=== PATIENT | male | born 1955 | race Caucasian/White ===

== ENCOUNTER 2017-12-18 19:49 | Inpatient (IN) ==
[2017-12-18] MEDS ORDERED: ZOFRAN 4 MG/2 ML IVP STA ×2 (19:57→23:06)
[2017-12-18 20:06] VITALS: BMI 26.5
--- NOTE | 2017-12-18 20:13 | ED.PDOC ---
General ED Provider: Dr. GREGORIA WOOD Chief Complaint: Nausea/Vomiting Stated Complaint: Patient is a 62 year old who comes to the ER with Progresive shortness of breath for the past 2 days. He states he has had vomiting 2-3 x today. Denies any chest pain. States that when he starts vomiting it does not improve for a while. Time Seen by Physician: 20:06 Mode of Arrival: Walk-In Information Source: Patient Exam Limitations: No limitations Nursing and Triage Documentation Reviewed and Agree: Yes Reviewed sepsis parameters & appropriate labs ordered?: No System Inflammatory Response Syndrome: Not Applicable Sepsis Protocol: For patient's 13 years and over: Temp is 96.8 and below OR 101 and greater Pulse >90 BPM Resp >20/minute Acutely Altered Mental Status Are patient's symptoms suggestive of a new infection, such as: -Pneumonia -Skin, Soft Tissue -Endocarditis -UTI -Bone, Joint Infection -Implantable Device -Acute Abdominal Infection -Wound Infection -Meningitis -Blood Stream Catheter Infection -Unknown System Inflammatory Response Syndrome: Not Applicable GI Complaint Exam - Vomiting/Diarrhea Complaint/Exam Onset/Duration: 1 day Symptoms Are: Still present Episodes of Vomiting over last 24 Hours: 3 Initial Severity: Moderate Character of Vomiting: Reports: Non-bilious Character of Diarrhea: Reports: Watery Aggravating: Reports: None (except when he has increased Phlegm ) Associated Signs and Symptoms: Denies: Dizziness, Light-headedness, Melena, Hematemesis, Fever, Abdominal pain, Cramping Non-GI Risk Factors: Reports: None Surgical Obstruction Risk Factors: Reports: None Related Surgical History: Reports: None Abdominal Findings: Present: None Differential Diagnoses: PUD, Viral Gastroenteritis Review of Systems - Review Of Systems Constitutional: Reports: Weakness Eyes: Reports: No symptoms Ears, Nose, Mouth, Throat: Reports: No symptoms Respiratory: Reports: Short of air Cardiac: Reports: No symptoms GI: Reports: Nausea, Vomiting : Reports: No symptoms Musculoskeletal: Reports: No symptoms Skin: Reports: No symptoms Neurological: Reports: Anxiety All Other Systems: Reviewed and Negative Past Medical History - Past Medical History Endocrine: Reports: None Cardiovascular: Reports: CHF Respiratory: Reports: None Hematological: Reports: None Gastrointestinal: Reports: GERD, Other (hepatitis C ) Genitourinary: Reports: None Neuro/Psych: Reports: None Musculoskeletal: Reports: None Cancer: Reports: None - Surgical History General Surgical History: Reports: Unknown - Family History Family History: Reports: Unknown - Social History Smoking Status: Former smoker Hx Substance Use: Yes (A LONG TIME AGO) Alcohol Screening: Occasionally - Immunizations Tetanus Shot up to Date: Yes Physical Exam - Physical Exam Appearance: Ill-appearing Ill-appearing: Severe Pain Distress: Mild Neck: Supple Respiratory: Airway patent, Breath sounds equal, Crackles (at right base ) Cardiovascular: Pulses normal, No rub, No murmur, Tachycardia GI/: Soft Musculoskeletal: Normal strength, ROM intact, No edema, No calf tenderness Skin: Warm, Dry, Normal color Neurological: Sensation intact, Motor intact, Alert, Oriented Psychiatric: Anxious Interpretation - EKG Interpretation Time of EKG #1: 20:16 Rate: Tachy Rhythm: Sinus Ectopy: None [place]: NL ST Segment: Normal Interpretation: Nonspecific T wave abnormality Re-Evaluation - Re-Evaluation Time of Re-Evaluation: 23:56 Status: Improved Vital Signs Stable: Yes (139/92) Lungs: Other (basilar rales.) Physician Notification - Case Discussed Physician Notified: Dr Peralta Time of Notification: 23:50 (Ok to Admit ) Critical Care Note - Critical Care Note Total Time (mins): 35 Course - Course Hematology/Chemistry: 12/20/17 05:00 12/20/17 05:00 Orders, Labs, Meds: Lab Review 12/18/17 12/18/17 12/18/17 20:15 20:15 20:15 WBC 9.52 RBC 4.69 L Hgb 13.5 L Hct 40.6 L MCV 86.6 MCH 28.8 MCHC 33.3 RDW Coeff of Mora 13.5 Plt Count 332 Immature Gran % (Auto) 0.2 Neut % (Auto) 67.2 Lymph % (Auto) 22.3 [place] % (Auto) 6.7 Eos % (Auto) 2.8 Baso % (Auto) 0.8 Immature Gran # (Auto) 0.0 Neut # (Auto) 6.4 Lymph # (Auto) 2.1 [place] # (Auto) 0.6 Eos # (Auto) 0.3 Baso # (Auto) 0.1 D-Dimer (Manual) Puncture Site O2 Saturation ABG pH ABG pCO2 ABG pO2 ABG HCO3 ABG Total CO2 ABG Base Excess Tone Test FiO2 % Sodium 140 Potassium 4.0 Chloride 104 Carbon Dioxide 21 L Anion Gap 19.0 BUN 17 Creatinine 1.04 Estimated GFR (MDRD) 73.00 BUN/Creatinine Ratio 16.34 Glucose 118 H Lactic Acid Calcium 10.1 Magnesium Total Bilirubin 0.8 AST 35 ALT 48 Alkaline Phosphatase 175 H Total Creatine Kinase 92 Troponin I 0.0330 B-Natriuretic Peptide 3429 H Total Protein 8.0 Albumin 3.8 Globulin 4.2 Albumin/Globulin Ratio 0.90 Amylase 40 Lipase 35 Procalcitonin 12/18/17 12/18/17 12/18/17 20:15 20:15 20:15 WBC RBC Hgb Hct MCV MCH MCHC RDW Coeff of Mora Plt Count Immature Gran % (Auto) Neut % (Auto) Lymph % (Auto) [place] % (Auto) Eos % (Auto) Baso % (Auto) Immature Gran # (Auto) Neut # (Auto) Lymph # (Auto) [place] # (Auto) Eos # (Auto) Baso # (Auto) D-Dimer (Manual) 1745.61 Puncture Site O2 Saturation ABG pH ABG pCO2 ABG pO2 ABG HCO3 ABG Total CO2 ABG Base Excess Tone Test FiO2 % Sodium Potassium Chloride Carbon Dioxide Anion Gap BUN Creatinine Estimated GFR (MDRD) BUN/Creatinine Ratio Glucose Lactic Acid 19.4 Calcium Magnesium Total Bilirubin AST ALT Alkaline Phosphatase Total Creatine Kinase Troponin I B-Natriuretic Peptide Total Protein Albumin Globulin Albumin/Globulin Ratio Amylase Lipase Procalcitonin < 0.05 12/18/17 12/18/17 20:15 20:21 WBC RBC Hgb Hct MCV MCH MCHC RDW Coeff of Mora Plt Count Immature Gran % (Auto) Neut % (Auto) Lymph % (Auto) [place] % (Auto) Eos % (Auto) Baso % (Auto) Immature Gran # (Auto) Neut # (Auto) Lymph # (Auto) [place] # (Auto) Eos # (Auto) Baso # (Auto) D-Dimer (Manual) Puncture Site Lb O2 Saturation 96.0 ABG pH 7.461 H ABG pCO2 28.4 L ABG pO2 75.0 L ABG HCO3 20.2 L ABG Total CO2 21 L ABG Base Excess -4 L Tone Test + FiO2 % 21.0 Sodium Potassium Chloride Carbon Dioxide Anion Gap BUN Creatinine Estimated GFR (MDRD) BUN/Creatinine Ratio Glucose Lactic Acid Calcium Magnesium 1.9 Total Bilirubin AST ALT Alkaline Phosphatase Total Creatine Kinase Troponin I B-Natriuretic Peptide Total Protein Albumin Globulin Albumin/Globulin Ratio Amylase Lipase Procalcitonin Orders Category Date Time Status ABG DRAW REQUEST Stat CARDIO 12/18/17 20:21 Completed EKG-(ED ONLY) Stat CARDIO 12/18/17 19:57 Completed NPO REMINDER: IMAGING ONCE CARE 12/18/17 22:21 Active ED APPLY O2 .ONCE EMERGENCY 12/18/17 19:57 Active ED [employer]PERVISOR APPLIED .ONCE EMERGENCY 12/18/17 19:57 Active ED IV/MEDIPORT/POWERPORT .ONCE EMERGENCY 12/18/17 19:57 Active ABG Stat LAB 12/18/17 20:21 Completed AMYLASE Stat LAB 12/18/17 20:15 Completed B-TYPE NATRIURETIC PEPTIDE Stat LAB 12/18/17 20:15 Completed BLOOD CULTURE (ED ONLY) Stat LAB 12/18/17 20:15 Completed CBC W/ AUTO DIFF Stat LAB 12/18/17 20:15 Completed COMPREHENSIVE METABOLIC PANEL Stat LAB 12/18/17 20:15 Completed CREATINE KINASE Stat LAB 12/18/17 20:15 Completed D-DIMER Stat LAB 12/18/17 20:15 Completed LACTIC ACID Stat LAB 12/18/17 20:15 Completed LIPASE Stat LAB 12/18/17 20:15 Completed MAGNESIUM Stat LAB 12/18/17 20:15 Completed PROCALCITONIN Stat LAB 12/18/17 20:15 Completed TROPONIN I Stat LAB 12/18/17 20:15 Completed 0.9 % Sodium Chloride [Saline Flush] MEDS 12/18/17 19:57 Discontinued 1 syr IVF PRN PRN Ondansetron HCl/Pf [Zofran 4 mg/2 ml] MEDS 12/18/17 19:57 Discontinued 4 mg IVP ONCE STA Ondansetron HCl/Pf [Zofran 4 mg/2 ml] MEDS 12/18/17 23:06 Discontinued 4 mg IVP ONCE STA CHEST, 1V AP ONLY Stat RADS 12/18/17 19:[address] CHEST PE PROTOCOL Stat RADS 12/18/17 22:19 Completed Medications Discontinued Medications Generic Name Dose Route Start Last Admin Trade Name Freq PRN Reason Stop Dose Admin Acetaminophen 650 mg 12/19/17 00:05 Tylenol PO Q4H PRN Fever > 102 Al Hydroxide/Mg Hydroxide 30 ml 12/19/17 01:29 12/19/17 01:30 Gi Cocktail PO 12/19/17 01:30 Not Given ONCE STA Albuterol/Ipratropium 1 vial 12/19/17 00:05 Duoneb NEB RTQID PRN wheezing Aspirin 81 mg 12/19/17 08:00 12/20/17 08:52 Aspirin Chewable PO Not Given DAILYWM BRANDYN Aspirin 81 mg 12/21/17 08:00 Aspirin Ec PO DAILYWM BRANDYN Atorvastatin Calcium 20 mg 12/20/17 21:00 Lipitor PO BEDTIME BRANDYN Cimetidine 400 mg 12/19/17 00:36 12/19/17 00:52 Tagamet PO 12/19/17 00:37 400 mg ONCE STA Administration Cimetidine 400 mg 12/19/17 06:30 12/20/17 05:35 Tagamet PO 400 mg QDAC BRANDYN Administration Enoxaparin Sodium 40 mg 12/19/17 09:00 12/20/17 08:56 Lovenox SUBCUT 40 mg DAILY BRANDYN Administration Furosemide 20 mg 12/19/17 00:30 12/20/17 05:35 Lasix IVP 20 mg QDAC BRANDYN Administration Losartan Potassium 25 mg 12/20/17 09:00 12/20/17 08:55 Cozaar PO 25 mg DAILY BRANDYN Administration Morphine Sulfate 2 mg 12/19/17 00:05 Morphine 2 Mg/Ml Syringe IVP Q4H PRN Severe Pain Multivitamins 1 tab 12/19/17 09:00 12/20/17 08:55 Multivitamin Tablet PO 1 tab DAILY BRANDYN Administration Ondansetron HCl 4 mg 12/18/17 19:57 12/18/17 20:32 Zofran 4 Mg/2 Ml IVP 12/18/17 19:58 4 mg ONCE STA Administration Ondansetron HCl 4 mg 12/18/17 23:06 12/18/17 23:16 Zofran 4 Mg/2 Ml IVP 12/18/17 23:07 4 mg ONCE STA Administration Ondansetron HCl 4 mg 12/19/17 00:05 Zofran 4 Mg/2 Ml IVP Q6H PRN Nausea / Vomiting Pantoprazole Sodium 40 mg 12/19/17 00:30 12/20/17 08:58 Protonix Iv IVP 40 mg DAILY BRANDYN Administration Potassium Chloride 20 meq 12/20/17 08:00 12/20/17 08:55 K-Dur PO 20 meq DAILYWM BRANDYN Administration Sodium Chloride 1 syr 12/18/17 19:57 12/18/17 23:18 Saline Flush IVF 1 syr PRN PRN Administration To flush IV Sodium Chloride 1 syr 12/19/17 05:00 12/20/17 13:26 Saline Flush IVF 1 syr Q8HR BRANDYN Administration Vital Signs: Temp Pulse Resp BP Pulse Ox 12/18/17 19:51 97.5 F L 102 H 28 H 144/105 H 97 Departure - Departure Time of Disposition: 23:57 Disposition: ADMITTED INPATIENT Discharge Problem: Nausea, Vomiting Congestive heart failure Qualifiers: Heart failure type: systolic Heart failure chronicity: acute on chronic Qualified Code(s): I50.23 - Acute on chronic systolic (congestive) heart failure Condition: Stable Pt referred to PMD for follow-up: No (ADMITTED ) IPMP verified?: No Allergies/Adverse Reactions: Allergies No Known Allergies Allergy (Verified 12/18/17 20:00) Home Medications: Ambulatory Orders Multivitamin [Multi-Vitamin Daily] 1 each PO DAILY 08/21/15 Cetirizine HCl [Zyrtec] 10 mg PO DAILY 12/19/17 Acetaminophen [Tylenol] 650 mg PO Q4H PRN tablet 12/20/17 Aspirin [Aspirin EC] 81 mg PO DAILYWM tablet. 12/20/17 Atorvastatin Calcium [Lipitor] 20 mg PO BEDTIME tablet 12/20/17 Cimetidine [Tagamet] 400 mg PO QDAC tablet 12/20/17 Enoxaparin Sodium [Lovenox] 40 mg SUBCUT DAILY syr 12/20/17 Furosemide [Lasix] 20 mg IVP QDAC vial 12/20/17 Losartan Potassium [Cozaar] 25 mg PO DAILY tablet 12/20/17 Morphine Sulfate [Morphine 2 mg/ml Syringe] 2 mg IVP Q4H PRN ml 12/20/17 Multivitamin [Multivitamin Tablet] 1 tab PO DAILY tab 12/20/17 Ondansetron HCl/Pf [Zofran 4 mg/2 ml] 4 mg IVP Q6H PRN 7 Days ml 12/20/17 Pantoprazole Sodium [Protonix IV] 40 mg IVP DAILY vial 12/20/17 Potassium Chloride [K-Dur] 20 meq PO DAILYWM tab 12/20/17
--- NOTE | 2017-12-18 21:45 | DI ---
EXAM: Single view chest. HISTORY: Shortness of breath. COMPARISON: CT dated 07/06/2015 I FINDINGS: A single portable AP view of the chest. LUNGS: The lung volumes are normal. There is blunting the costophrenic angles bilaterally. Bibasila r interstitial and airspace opacities are seen. There are no suspicious nodules. MEDIASTINUM: The heart is enlarged. The aorta is tortuous and calcified. OSSEOUS STRUCTURES: The osseous structures show mild degenerative changes consistent with age. The so ft tissues are unremarkable. IMPRESSION: 1. Bilateral pleural effusions. 2. Bibasilar interstitial and airspace opacities which are likely due to atelectasis. Pneumonia can not be excluded. Recommend follow-up.
--- NOTE | 2017-12-18 23:16 | CT ---
Exam: CT angiography of the chest History: Shortness of breath Technique: [address] of the chest utilizing CT angiography protocol. Multiplanar and max imum intensity projection reformations were performed. FINDINGS: Technically adequate for evaluation of pulmonary arteries. The aorta is not opacified. T here are no pulmonary artery filling defects. Moderate right and small left pleural effusions are pr esent with adjacent atelectasis. The upper lungs are clear. Atherosclerotic calcification of the ao rta without aneurysm. No acute chest wall abnormalities. No acute findings of the upper abdomen. Impression: 1. No evidence of pulmonary artery thrombus 2. Bilateral pleural effusions are nonspecific
[2017-12-19] MEDS ORDERED: MORPHINE 2 MG/ML SYRINGE IVP PRN (00:05)
[2017-12-19] MEDS ORDERED: DUONEB NEB PRN (00:05)
[2017-12-19] MEDS ORDERED: ZOFRAN 4 MG/2 ML IVP PRN (00:05)
[2017-12-19] MEDS ORDERED: TYLENOL PO PRN (00:05)
[2017-12-19] MEDS ORDERED: SODIUM CHLORIDE 1,000 ML IV SCH (00:30)
[2017-12-19] MEDS ORDERED: TAGAMET PO STA (00:36)
[2017-12-19] MEDS: PROTONIX IV IVP SCH ×2 (00:52→08:58)
[2017-12-19] MEDS: LASIX IVP SCH ×2 (00:52→05:38)
[2017-12-19] MEDS ORDERED: GI COCKTAIL PO ONE (01:27)
[2017-12-19] MEDS ORDERED: GI COCKTAIL PO STA (01:29)
--- NOTE | 2017-12-19 01:46 | PCM ---
- Chief Complaint Chief Complaint: Shortness of breath, Nausea and Vomiting. - History of Present Illness History of Present Illness: 62 yr old WM present in room 104 with Phuong Rodriguez, his mother. I was called by ER around midnight and came to evaluate patient status. Patient was last admitted to [facility] on 07/06/[address] Chicas and D/C by Dr. Chicas to 07/08/15 with transfer to . He had heart cath per his report at that time, was seen by cardiology, started on meds for his CHF. He took the Rx for about 1 year and then stopped them. He has not seen outpatient provider in 3-4 years. >50 year pack history of tobacco, quit 8 months ago. Chronic Nausea/vomiting corrected with tagamet. He denied ETOH use, denied recent drug use. Reported Hep C but no w/u, no treatment, unknown status. HE lives alone, mother present in room today. He works in construction, regular drug use, remote IV drug use, THC regularly but denies any drug use in past 2-3 months. When asked about drugs, he said he has used most of them but not heroin. His favorite is speed, he last used this 2-3 months ago, THC probably more recently. Reviewed Cyclic vomiting syndrome with him and need to avoid drugs. Praise given on smoking cessation status. He notes he should have come in here sooner. Mother noted that he had been declining since 09/2017. He has not gained any weight, but has chronic N/V and epigastric pain. Regular emesis, regurgitation and this is a daily thing for him. He denied bloody emesis. Weight from 2015 admission was 149 and he is currently up to 177. He denied any recent change. He has been eating out frequently, consuming large amounts of salt. Last Meal this am oatmeal and last night chicken noodle soup. He wretched x 6 during our encounter and notes that the only thing that works for him is tagamet. We have this ordered for him. I will also give him a GI coctail to see if this helps. Denies chest pain, but feels very nauseated. EKG evaluated by me and by DR. Pinon and no acute ST/T changes, normal axis, sinus tachy, prominent e/o LAE ( SEEN ON ECHO 2014 discussed below). He has not slept well in past 3 days, feels he must gasp for air. Nausea worse, SOA worse, wants rest. Speed/THC use as noted, none recently. History Review: Reviewed his admission from 2014. Similar symptoms with SOA worsening over 1-2 week period, started w/ exertion and then worsened to with sitting and all activities. Chest heaviness and pain, non radiating. Activity worsened sx. Visited ER, saw Dr gore BNP 2822, TI negative, Anemia present 12.7, BUN 21, Cr 1.21, Glu 140. Admitted for decompensation HF. HIstory GERD, PUD, OA, Hep C , unknown. Fam hx CAD. No cancers. 2+ edema on exam no clubbing. Respiratory distress w/ pleural effusion, nicotine use, polysubstance abuse. Dr. Kent was consulted, lovenox for DVT, BB metoprolol added. Enzymes. Pt transferred on . Bilateral pleural effusion, acute systolic heart failure, chest pain. Dr. Durham transfer. SOA longterm, worsening. CHest pain and tightness at that visit. Echo severe dilated cardiomyopathy and EJ 25%. Aneurysm 4.[address] Kent consult note, Dilated cardiomyopathy, normal lipid panel, chronic lung disease, prolonged smoking history. History of drug abuse, recommended lasix, Basil-I and BB. Reviewed last known echo from 07/07/15 as well. Enlarged lEft atrial left ventricle and right ventricle. Hypokinetic left ventrical. LVH EF ~25%, paradoxical septal wall mild base setpum. Dilated cardiomyopathy w/ left ventricular EJ 25%. Imaging Studies: Reviewed CT REport from 2015 and this showed ?Aneurysm of aorta> CT today did not show this. No e/o PE despite elevated Ddimer. Bilateral pleural effusions non specific and seem to be the same right sided moderate pleural effusions seen in 2015. NO aneursym is seen now. - Review of Systems Constitutional: weakness, fatigue, loss of appetite. No: fever, chills, sweats Eyes: No: blurred vision, double-vision, discharge, itching, pain, redness, photophobia Ears: hearing loss (mild chronic). No: pain, bleeding, drainage, ringing Nose: No: bleeding, congestion, discharge Throat: No: pain, swelling, voice change Mouth: No: bleeding, pain, swelling Respiratory: cough, shortness of air. No: wheeze, hemoptysis, pain with breathing Cardiovascular: edema. No: chest pain, left arm pain, diaphoresis, PND, orthopnea, palpitations, syncope Gastrointestinal: abdominal pain (epigastric), nausea, vomiting, other ( Occasional BRB on toilet paper per his report to me today. ?HEmorrhoidal problem. ). No: diarrhea, melena, hematemesis, hematochezia, dysphagia, constipation Genitourinary: No: dysuria, hematuria, frequency, incontinence, flank pain, penile discharge, testicular pain, testicular swelling, other Neurological: headache, dizziness, weakness, other (sleep issues. ) Musculoskeletal: No: pain, swelling in joints, other Skin: No: rash, pruritus, lacerations, wounds, bruising, other Immunology: No: hives, itching, frequent infections, difficulty healing, other Hematology: No: easy bruising, easy bleeding, swollen glands, other Endocrine: No: weight changes (SPECIFICALLY DENIED THIS PROBLEM> ) Psychiatric: No: depression, anxiety, sleeplessness, hopelessness, suicidal, hallucinations, other Habits: tobacco use (FORMER), substance use (MULTIPLE SUBSTANES WITHIN PAST 3 months but reports nothing in 2-3 likely. ). No: alcohol use - Past Medical History Past Medical History: Systolic CHF EF 25%, Dilated Cardiomyopathy, History IV drug use, Polysubstance abuse, Hep C chronicity unknown, Anemia, poor diet, non compliance, poor f/u. - Past Surgical History Past Surgical History: Tonsils/adenoids. Sutures of left arm as youth. - Allergies Allergies/Adverse Reactions: Allergies Allergy/AdvReac Type Severity Reaction Status Date / Time No Known Allergies Allergy Verified 12/18/17 20:00 - Medications Medications: Medications Generic Name Dose Route Start Last Admin Trade Name Freq PRN Reason Stop Dose Admin Acetaminophen 650 mg 12/19/17 00:05 Tylenol PO Q4H PRN Fever > 102 Al Hydroxide/Mg Hydroxide 30 ml 12/19/17 01:29 12/19/17 01:30 Gi Cocktail PO 12/19/17 01:30 Not Given ONCE STA Albuterol/Ipratropium 1 vial 12/19/17 00:05 Duoneb NEB RTQID PRN wheezing Aspirin 81 mg 12/19/17 08:00 Aspirin Chewable PO DAILYWM BRANDYN Cimetidine 400 mg 12/19/17 06:30 Tagamet PO QDAC BRANDYN Furosemide 20 mg 12/19/17 00:30 12/19/17 00:52 Lasix IVP 20 mg QDAC BRANDYN Administration Morphine Sulfate 2 mg 12/19/17 00:05 Morphine 2 Mg/Ml Syringe IVP Q4H PRN Severe Pain Multivitamins tab 12/19/17 09:00 Multivitamin Tablet PO DAILY BRANDYN Ondansetron HCl 4 mg 12/19/17 00:05 Zofran 4 Mg/2 Ml IVP Q6H PRN Nausea / Vomiting Pantoprazole Sodium 40 mg 12/19/17 00:30 12/19/17 00:52 Protonix Iv IVP 40 mg DAILY BRANDYN Administration Sodium Chloride 1 syr 12/18/17 19:57 12/18/17 23:18 Saline Flush IVF 1 syr PRN PRN Administration To flush IV - Family History Past Family History: 4 Daughters healthy. Mother migraines and DM. No cancers of lung/colon/prostate in family. Patient poor historian, did not know much of history. Mother in room did not provide much else either. - Social History Past Social History: Former smoker, quit 8 months ago. 50+ Pack year history. IV drug user. Hep C+ unknown status, muultiple drug use. Works as [employer]. - Vital Signs Temperature: 97.6 F Pulse Rate: 105 Respiratory Rate: 20 Blood Pressure: 144/105 O2 Sat by Pulse Oximetry: 95 - Body Composition Height: 5 ft 8.5 in Weight: 177 lb Body Mass Index (BMI): 26.5 - Physical Examination HEENT: Constitutional: Appearance- Thin WF, no jugular distention, no pulsation visible. Talks in full sentences, foul language throughout most of the visit. Older than stated age. Orientation- Oriented x 3, alert retching in bed, emesis multiple times during encounter. He was pleasant and provided own history. Integumentary: General-No rashes, ulcers or lesions. Palpation- Normal skin moisture/turgor. Skin is warm to touch, appropriate. Capillary refill is normal bilateral Upper and lower extremity. +Clubbing bilateral hands. Head/Neck: Head- normocephalic and atraumatic. Neck- without visible/palpable lumps or pulsations. Palpation- No bony tenderness about head/neck along frontal, occipital, temporal, parietal, mastoid, jawline, zygoma, orbit or any other location.~ NO temporal artery tenderness. No TMJ tenderness. Neck Supple. Thyroid-No thyromegaly, no nodules Eye: Bilaterally PERRLA, EOMI. No discharge. Upper and lower eyelids are normal. Sclera/conjunctiva normal without discharge. Cornea is normal and clear. Lens is normal. Eyeball appears normal. No ciliary flushing, no conjunctival injection. ENMT: Pinna- normal without tenderness or erythema. External auditory canal Left- normal without erythema or discharge, no excessive cerumen. External auditory canal Right-normal without erythema or discharge, no excessive cerumen. TM left- Vald[place]inos/pearly, normal light reflex and anatomy TM Right- Vald[place]inos/ pearly, normal light reflex and anatomy Hearing Assessment-normal to conversational speech. Nose and sinus- No sinus tenderness along frontal/ maxillary region. External appearance normal and midline. Nares- bilateral quiet airflow, no discharge. Nasal mucosa- No bleeding noted and no ulcerations observed. [place], moist. Turbinates non boggy. Lips- normal color, moist without cracks/lesions Oral Cavity/Palate- hard/soft palate intact without lesions, POOR DENTITION. oral mucosa pink and moist. Tongue normal midline. Oropharynx- no pharyngeal erythema, Uvula midline. No post nasal drip. No exudate. Salivary glands- Non tender to palpation CHEST/LUNG: Inspection- symmetric chest wall no pectus deformity. Normal effort , no respiratory distress noted, no use of accessory muscles. Palpation- nontender sternum, ribline. No abnormal pulsations. Auscultation- Breath sounds diminished throughout all lung donis worse bibasilr crackles distantly. Normal tracheal sounds, Normal bronchial sounds overlying sternum, Bronchovessicular sounds decreased and coarse between scapulae posteriorly, Adventitious sounds- No wheezes, rhonchi. Suspect atelectasis and some basilar crackling. Pleural effusion on CT scan. Very mild symptoms. He has no egophany , no pectoriloquy. CARDIOVASCULAR: Carotid artery- normal, no carotid bruits, no abdominal bruit, or abnormal pulsations. Jugular vein- no pulsations. No appreciable HJR. Palpation/Percussion- PMI infero laterally displaced. no palpable thrill Auscultation- Sinus tachy with in-rhythm. I did not appreciate murmur noted in sitting position. +S3 Gallop and + Intermittent split S1 and S2, did not appear to be paradoxically split. Extremities- digital clubbing, No cyanosis, no increased warmth. Edema bilateral LE is mild and much less than I expected. ABDOMEN: Inspection- normal and no visible pulsations. Normal contour. Auscultation- Bowel sounds normal, no abdominal bruits. Palpation/Percussion- soft, non-tender RUQ/LUQ/RLQ/LLQ, tender over epigastric region, no rebound tenderness, no rigidity (guarding), no jar tenderness, no masses. Liver- hepatomegaly 2.5 fingers below costal margin. Spleen no splenomegaly, Hernias- none. Rectal not examined. Peripheral Vascular: Upper extremity Left- Normal temperature with pink nailbeds and no ulcerations. Upper extremity Right- Normal temperature with pink nailbeds and no ulcerations. Lower extremity- Normal temperature with pink nailbeds and no ulcerations. DP pulses 2+ bilaterally. Pedal hair intact. Normal capillary refill. Edema- No edema. Musculoskeletal: Generalized-No generalized swelling or edema of extremities, no digital clubbing or cyanosis, neurovascularly intact all four extremities. Upper extremity- Symmetrical posture. No visible deformity. Normal sensation along medial and lateral upper extremity proximally and distally. NO tenderness overlying shoulder, lateral/medial epicondyle. Voltmeter Operator 5/5 and strength 5/5 bilateral UE. Elbow palpated, no tenderness overlying olecranon. Normal supination, pronation to active/passive ROM and to resisted rotation. Bicep insertion/tricep insertion appear normal without obvious pathology. Rotator cuff evaluated and intact. Normal wrist ROM bilaterally. Normal hand movement, intrinsic muscles of hands normal. No tenderness to palpation of hands/wrists/ elbows. Lower extremity- Hip: Not tender to palpation, no pain, no swelling, edema or erythema of surrounding tissue, normal strength and tone. Normal appearing hip ROM bilaterally without pain. Knee: Knee ROM normal. No tenderness overlying trochanters, no tenderness about patella, quad tendon, patellar tendon. No tenderness at tibial tuberosity. Ankle: normal ROM not tender to palpation along medial/lateral malleolus. Foot: Normal movement of toes, no tenderness bilateral feet/toes. Normal foot type. Spine/Ribs- No deformities, masses or tenderness, no known fractures, normal strength, Normal ROM. Normal stability No tenderness along C/T/L spine. Normal appearing ROM about spine. Neurological: General- Moves all 4 extremities symmetrically. Symmetrical face and body posture. Cranial nerves- individually evaluated II-XII and intact. PERRLA, Normal EOMI, visual/special senses appear intact, Face is symmetrical and normal sensation/movement, normal tongue, normal strength/posture of neck musculature. Reflexes- intact with DTR 2+ patellar, Achilles, bicep, brachial, tricep. Ankle clonus normal with 2 beats. Strength- 5/5 bilateral UE and LE. Soft touch- intact bilateral UE and LE. Temperature sensation- intact bilateral UE and LE. Neuropsych: Oriented- Person, place, time. (AAOx3), Mood/affect- normal and congruent. Able to articulate well. Speech-Normal speech, normal rate, normal tone, normal use of language, volume and coherence. Thought content- normal with ability to perform basic computations and apply abstract thought/reason. Associations- intact, no SI/HI, no hallucinations, delusions, obsessions. Judgment/insight- Questionable Memory-Recall intact, remote and recent memory intact. Knowledge- Questionable Lymphatic: Head/Neck- normal size and non tender to palpation. Axillary- normal size and non tender to palpation. Femoral and Inguinal- normal size and non tender to palpation. - Lab/Tests/Diagnostic Imaging Lab/Tests/Diagnostic Imaging: Laboratory Last Values WBC 9.19 K/ul (4.2-10.2) 12/19/17 01:25 RBC 4.53 10^6/ul (4.70-6.10) L 12/19/17 01:25 Hgb 13.2 g/dl (14.0-18.0) L 12/19/17 01:25 Hct 39.1 % (42.0-52.0) L 12/19/17 01:25 MCV 86.3 fl (80.0-94.0) 12/19/17 01:25 MCH 29.1 pg (27.0-31.0) 12/19/17 01:25 MCHC 33.8 (31.8-35.4) 12/19/17 01:25 RDW Coeff of [place] 13.5 % (11.6-14.8) 12/19/17 01:25 Plt Count 340 10^3/uL (140-440) 12/19/17 01:25 Immature Gran % (Auto) 1.0 % (0.0-5.0) 12/19/17 01:25 Neut % (Auto) 74.4 12/19/17 01:25 Lymph % (Auto) 16.0 (10.0-50.0) 12/19/17 01:25 [place] % (Auto) 6.2 (0-10) 12/19/17 01:25 Eos % (Auto) 1.6 % (0.0-7.0) 12/19/17 01:25 Baso % (Auto) 0.8 % (0.0-3.0) 12/19/17 01:25 Immature Gran # (Auto) 0.1 (0.0-1.0) 12/19/17 01:25 Neut # (Auto) 6.8 K/ul (2.0-6.9) 12/19/17 01:25 Lymph # (Auto) 1.5 K/uL (0.60-3.4) 12/19/17 01:25 [place] # (Auto) 0.6 K/uL (0.4-2.0) 12/19/17 01:25 Eos # (Auto) 0.2 K/ul (0.0-0.7) 12/19/17 01:25 Baso # (Auto) 0.1 K/uL (0-0.2) 12/19/17 01:25 D-Dimer (Manual) 1745.61 ng/mL (<500) 12/18/17 20:15 Puncture Site Lb 12/18/17 20:21 O2 Saturation 96.0 % (95-100) 12/18/17 20:21 ABG pH 7.461 (7.35-7.45) H 12/18/17 20:21 ABG pCO2 28.4 mmHg (35-45) L 12/18/17 20:21 ABG pO2 75.0 mmHg (85-100) L 12/18/17 20:21 ABG HCO3 20.2 (22.0-26.0) L 12/18/17 20:21 ABG Total CO2 21 (22.0-28.0) L 12/18/17 20:21 ABG Base Excess -4 (-2.0-2.0) L 12/18/17 20:21 Tone Test + 12/18/17 20:21 FiO2 % 21.0 % 12/18/17 20:21 Sodium 140 mmol/L (136-145) 12/19/17 01:25 Potassium 4.5 mmol/L (3.5-5.1) 12/19/17 01:25 Chloride 105 mmol/L (98-107) 12/19/17 01:25 Carbon Dioxide 20 mmol/L (23-31) L 12/19/17 01:25 Anion Gap 19.5 12/19/17 01:25 BUN 17 mg/dL (7-18) 12/19/17 01:25 Creatinine 0.98 mg/dL (0.60-1.10) 12/19/17 01:25 Estimated GFR (MDRD) 78.00 mL/min 12/19/17 01:25 BUN/Creatinine Ratio 17.34 12/19/17 01:25 Glucose 119 mg/dL (82-115) H 12/19/17 01:25 Lactic Acid 19.4 mg/dL (4.5-19.8) 12/18/17 20:15 Calcium 9.8 mg/dL (8.2-10.2) 12/19/17 01:25 Magnesium 1.9 mg/dL (1.7-2.2) 12/18/17 20:15 Total Bilirubin 0.8 mg/dL (0.00-1.20) 12/18/17 20:15 AST 35 U/L (15-37) 12/18/17 20:15 ALT 48 U/L (12-78) 12/18/17 20:15 Alkaline Phosphatase 175 U/L (56-119) H 12/18/17 20:15 Total Creatine Kinase 92 U/L 12/18/17 20:15 Troponin I 0.0370 ng/ml (0.0000-0.4000) 12/19/17 01:25 B-Natriuretic Peptide 3429 pg/mL (0-100) H 12/18/17 20:15 Total Protein 8.0 g/dL (5.8-8.1) 12/18/17 20:15 Albumin 3.8 g/dL (3.4-5.0) 12/18/17 20:15 Globulin 4.2 12/18/17 20:15 Albumin/Globulin Ratio 0.90 12/18/17 20:15 Amylase 40 U/L (25-115) 12/18/17 20:15 Lipase 35 U/L (8-78) 12/18/17 20:15 Procalcitonin < 0.05 ng/mL (<0.05) 12/18/17 20:15 CXR: bibasilar interstitial airspace opacities likely atelectasis, cannot r/o pneumonia. Bilateral pleural effusions. CT CHest: No aneursym. No PE. Moderate Pleural effusion bilaterally. (Not compared to 2015 CT but report sounds similar). ABG: Interpreted personally. Step 1 is it valid. H+=24*PaC02/HCO3- H+=24* 28.4/20.3=34 and this is very close to set tables for what the hydrogen ion should have been. Alkalotic as >7.45. Suspect respiratory as Base excess and PaCo2 is down (usually opposite with respiratory). Summary partially compensated primary respiratory alkalosis vs acute superimposed on chronic primary respiratory alkalosis or most likely mixed acute respiratory alkalosis with a small metabolic acidosis - Assessment (1) Hepatitis C antibody positive in blood Status: Acute Code(s): R76.8 - OTHER SPECIFIED ABNORMAL IMMUNOLOGICAL FINDINGS IN SERUM SNOMED Code(s): 172971020 (2) History of intravenous drug abuse Status: Acute Code(s): Z87.898 - PERSONAL HISTORY OF OTHER SPECIFIED CONDITIONS SNOMED Code(s): 88668340053814045 (3) History of drug abuse Status: Acute Code(s): Z87.898 - PERSONAL HISTORY OF OTHER SPECIFIED CONDITIONS SNOMED Code(s): 861284303 (4) Dilated cardiomyopathy Status: Acute Code(s): I42.0 - DILATED CARDIOMYOPATHY SNOMED Code(s): 169979268 (5) Former smoker Status: Acute Code(s): Z87.891 - PERSONAL HISTORY OF NICOTINE DEPENDENCE SNOMED Code(s): 7650711 (6) Pleural effusion Status: Acute Code(s): J94.8 - OTHER SPECIFIED PLEURAL CONDITIONS SNOMED Code(s): 87619680 (7) Anemia Status: Acute Code(s): D64.9 - ANEMIA, UNSPECIFIED SNOMED Code(s): 672325598 (8) Congestive heart failure Status: Acute Code(s): I50.9 - HEART FAILURE, UNSPECIFIED SNOMED Code(s): 78344272 Qualifiers: Heart failure type: systolic Heart failure chronicity: acute on chronic Qualified Code(s): I50.23 - Acute on chronic systolic (congestive) heart failure (9) Nausea Status: Acute Code(s): R11.0 - NAUSEA SNOMED Code(s): 177624426 (10) Vomiting Status: Acute Code(s): R11.10 - VOMITING, UNSPECIFIED SNOMED Code(s): 800032803 - Plan Plan: Acute CHF exacerbation: Labs reviewed and no WBC elevation, he does not meet SIRS criteria, Ddimer elevated, Troponin I normal x 1 set, Hgb shows mild anemia. He has an S3 Gallop, known history of cardiomyopathy, Systolic EF. I will not use IV fluids for now. IV lasix given now and he had quick 225 ml out. Repeat in 2hours. EKG reviewed, labs/imaging reviewed, talked with nursing , talked with ER Dr. Pinon and evaluated records from 2015. Goal is urine output of 1ml/kg/hour. We will monitor electrolytes closely. CT appears to be mostly unchanged from his last admission. No PE. We will monitor Creatinine, which is stable for now. K+ stable for now. Mg++ stable for now. Unknown recent weight. no major swelling of legs but he does have prominent pleural effusion. Watch closely. Good response to the IV lasix. We will give him another dose today. - Salt restrict 2G/day - Fluid restrict 2L/day. - I d/c IV fluids as studies have shown worsening outcomes with use of fluids in pt with decompensated HF. - Lasix 20mg IV now, repeat in 4-6 hours. - STRICT I+O. - Labs: Daily CMP/CBC, Repeat Troponin I. Lipid panel. - 2 D echo. - Daily weight. - O2 titrate 90-98%. - TSH Nausea and Vomiting: GI cocktail given, will assess how this affects him. Can have tagamet. May benefit from evaluation by GI for EGD. We will check H. Pylori stool ag. We will also keep PPI on board. R/B/A to PPI d/w patient. [place] amazing and slept after GI coctail. -Protonix - H. Pylori urine ag. abs testing will be less accurate with use of PPI. - Zofran. Non compliance: Needs to meet with cardiology as outpatient again. Polysubstance abuse: R/B/A to continue drug use d/w patient, specifically cardiac stimulants. All drugs should be stopped, caution advised. UDS was + for amp and methamp last check 07/06/15. -UDS Hep C: Chronic, not reason for admit. Will check Quant PCR to start and Genotype. - QUant PCR and genotypte Diet: Limit Salt 2G daily. Limit fluids to no more than 2 L per day. DVT PRophy: Lovenox. No active bleeding, no emesis of blood. Intermitent BRB on TP ?Hemorrhoidal. Activity: ad hernan. Disposition: Admit to inpatient status with acute decompensated heart failure. Constult cardiology, repeat 2D echo. If N/V remains intractable, we may refer to for speciality care for GI evaluation as well as cardiology. Spent 50 minutes on this admission today. - Consult Cardiology. Code Status: Full code per patient and mother. Former smoker. The patient may be benefited by Entresto, and Toprol XL and possibly aldactone but I would not start them while decompensated.
[2017-12-19] MEDS: TAGAMET PO SCH (05:37)
[2017-12-19] MEDS: MULTIVITAMIN TABLET PO SCH (08:58)
[2017-12-19] MEDS: ASPIRIN CHEWABLE PO SCH (08:58)
[2017-12-19] MEDS: LOVENOX SUBCUT SCH (08:59)
[2017-12-19] MEDS ORDERED: CLARITIN PO SCH (09:00)
[2017-12-19] MEDS ORDERED: ZYRTEC PO SCH (09:00)
[2017-12-20] MEDS: LASIX IVP SCH (05:35)
[2017-12-20] MEDS: TAGAMET PO SCH (05:35)
--- NOTE | 2017-12-20 07:46 | PCM.PROG ---
Subjective: Patient resting this am at 7:00 during rounds. Easily awoken and pleasant reporting 1000% better. He has no pain, no chest pain, SOA is better, no cough , no peripheral edema. Admit weight 177,yesterday 170 and 166 this am. Vitals overnight reviewed and looked good. He has had some good urine output 1.3 ml/kg /hr with 20mg lasix IV daily. Nursing notes reviewed, talked with overnight nurse and no issues. Just as I was coming in, just before 7am he had a 12 beat run of what appears to be V tach. He has felt fine, he noted that he just got up to urinate. Filled another urinal full of urine. Tele report reviewed. He has not had anything like this so far. Labs reviewed, sodium stable 140, K+ low normal 3.5, we will replace this. Cr mild elevation but okay at 1.07. Glucose 90. Hgb has dropped with mild anemia at 11.9. Lipid panel looked okay yesterday trig 87, total 168, LDL 119 and HDL 32. ASCVD risk of 8.2 supports moderate statin to be of benefit. I will add lipitor 20mg daily to his regimen. 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 D/C home on previous regimen. ASA of + rachelle at this time. He is improving, some question about accuracy of admit weight. Regardless, he is improving. New meds. Dr. olson started losartan yesterday. - Review of Systems Constitutional: weakness, fatigue, No: fever, chills, sweats, loss of appetite Eyes: No: blurred vision, double-vision, discharge, itching, pain, redness, photophobia Ears: hearing loss (mild chronic). No: pain, bleeding, drainage, ringing Nose: No: bleeding, congestion, discharge Throat: No: pain, swelling, voice change Mouth: No: bleeding, pain, swelling Respiratory: cough, shortness of air (MARKEDLY BETTER). No: wheeze, hemoptysis , pain with breathing Cardiovascular: No: chest pain, left arm pain, diaphoresis, PND, orthopnea, palpitations, syncope edema Gastrointestinal: abdominal pain (epigastric), nausea/vomiting (MARKDELY BETTER) , No: diarrhea, melena, hematemesis, hematochezia, dysphagia, constipation Genitourinary: No: dysuria, hematuria, frequency, incontinence, flank pain, penile discharge, testicular pain, testicular swelling, other Neurological: headache, dizziness, weakness, other (sleep issues. ) Sleeping is better. Musculoskeletal: No: pain, swelling in joints, other Skin: No: rash, pruritus, lacerations, wounds, bruising, other Immunology: No: hives, itching, frequent infections, difficulty healing, other Hematology: No: easy bruising, easy bleeding, swollen glands, other Endocrine: No: weight changes (SPECIFICALLY DENIED THIS PROBLEM> ) Psychiatric: No: depression, anxiety, sleeplessness, hopelessness, suicidal, hallucinations, other Habits: tobacco use (FORMER), substance use (MULTIPLE SUBSTANES WITHIN PAST 3 months but reports nothing in 2-3 likely. ). No: alcohol use Objective: Vitals: T=97.9 F, P=81, R=14, MZ=647/70, SPO2=92 Constitutional: Appearance- Calm/ comfortable, sleeping, no respiratory distress, no reports of pain. Talks in full sentences. Thankful. Pleasant. Orientation- Oriented x 3, alert Integumentary: General-No rashes, ulcers or lesions. Palpation- Normal skin moisture/turgor. Skin is warm to touch, appropriate. Capillary refill is normal bilateral Upper and lower extremity. +Clubbing bilateral hands. Head/Neck: Head- normocephalic and atraumatic. Neck- without visible/palpable lumps or pulsations. Palpation- No bony tenderness about head/neck along frontal, occipital, temporal, parietal, mastoid, jawline, zygoma, orbit or any other location.~ NO temporal artery tenderness. No TMJ tenderness. Neck Supple. Thyroid-No thyromegaly, no nodules Eye: Bilaterally PERRLA, EOMI. No discharge. Upper and lower eyelids are normal. Sclera/conjunctiva normal without discharge. Cornea is normal and clear. Lens is normal. Eyeball appears normal. No ciliary flushing, no conjunctival injection. ENMT: Nares- bilateral quiet airflow, no discharge. Nasal mucosa- No bleeding noted and no ulcerations observed. [place], moist. Turbinates non boggy. Lips- normal color, moist without cracks/lesions Oral Cavity/Palate- hard/soft palate intact without lesions, POOR DENTITION. oral mucosa pink and moist. Tongue normal midline. Oropharynx- no pharyngeal erythema, Uvula midline. No post nasal drip. No exudate. Salivary glands- Non tender to palpation CHEST/LUNG: Inspection- symmetric chest wall no pectus deformity. Normal effort , no respiratory distress noted, no use of accessory muscles. Palpation- nontender sternum, ribline. No abnormal pulsations. Auscultation- Breath sounds diminished throughout all lung donis but clear. Normal tracheal sounds , Normal bronchial sounds overlying sternum, Bronchovessicular sounds normal between scapulae posteriorly, Adventitious sounds- No wheezes, rhonchi. He has no egophany, no pectoriloquy. NO rales today. CARDIOVASCULAR: Carotid artery- normal, no carotid bruits, no abdominal bruit, or abnormal pulsations. Jugular vein- no pulsations. No appreciable HJR. Palpation/Percussion- PMI infero laterally displaced. no palpable thrill Auscultation- Sinus tachy with in-rhythm. I did not appreciate murmur noted in sitting position. +S3 Gallop and + Intermittent split S1 and S2, did not appear to be paradoxically split. Extremities- digital clubbing, No cyanosis, no increased warmth. Edema bilateral LE is mild and much less than I expected. ABDOMEN: Inspection- normal and no visible pulsations. Normal contour. Auscultation- Bowel sounds normal, no abdominal bruits. Palpation/Percussion- soft, non-tender RUQ/LUQ/RLQ/LLQ, tender over epigastric region, no rebound tenderness, no rigidity (guarding), no jar tenderness, no masses. Liver- hepatomegaly 2.5 fingers below costal margin. Spleen no splenomegaly, Hernias- none. Rectal not examined. Peripheral Vascular: Upper extremity Left- Normal temperature with pink nailbeds and no ulcerations. Upper extremity Right- Normal temperature with pink nailbeds and no ulcerations. Lower extremity- Normal temperature with pink nailbeds and no ulcerations. DP pulses 2+ bilaterally. Pedal hair intact. Normal capillary refill. Edema- No edema. Neurological: General- Moves all 4 extremities symmetrically. Symmetrical face and body posture. Cranial nerves- individually evaluated II-XII and intact. PERRLA, Normal EOMI, visual/special senses appear intact, Face is symmetrical and normal sensation/movement, normal tongue, normal strength/posture of neck musculature. Reflexes- intact with DTR 2+ patellar, Achilles, bicep, brachial, tricep. Ankle clonus normal with 2 beats. Strength- 5/5 bilateral UE and LE. Soft touch- intact bilateral UE and LE. Temperature sensation- intact bilateral UE and LE. Neuropsych: Oriented- Person, place, time. (AAOx3), Mood/affect- normal and congruent. Able to articulate well. Speech-Normal speech, normal rate, normal tone, normal use of language, volume and coherence. Thought content- normal with ability to perform basic computations and apply abstract thought/reason. Associations- intact, no SI/HI, no hallucinations, delusions, obsessions. Judgment/insight- Questionable Memory-Recall intact, remote and recent memory intact. Knowledge- Questionable Lymphatic: Head/Neck- normal size and non tender to palpation. Axillary- normal size and non tender to palpation. Femoral and Inguinal- normal size and non tender to palpation. Laboratory Last Values WBC 6.87 K/ul (4.2-10.2) 12/20/17 05:00 RBC 4.14 10^6/ul (4.70-6.10) L 12/20/17 05:00 Hgb 11.9 g/dl (14.0-18.0) L 12/20/17 05:00 Hct 35.3 % (42.0-52.0) L 12/20/17 05:00 MCV 85.3 fl (80.0-94.0) 12/20/17 05:00 MCH 28.7 pg (27.0-31.0) 12/20/17 05:00 MCHC 33.7 (31.8-35.4) 12/20/17 05:00 RDW Coeff of Mora 13.3 % (11.6-14.8) 12/20/17 05:00 Plt Count 307 10^3/uL (140-440) 12/20/17 05:00 Immature Gran % (Auto) 0.3 % (0.0-5.0) 12/20/17 05:00 Neut % (Auto) 54.6 12/20/17 05:00 Lymph % (Auto) 27.5 (10.0-50.0) 12/20/17 05:00 Wilkinson % (Auto) 10.0 (0-10) 12/20/17 05:00 Eos % (Auto) 6.6 % (0.0-7.0) 12/20/17 05:00 Baso % (Auto) 1.0 % (0.0-3.0) 12/20/17 05:00 Immature Gran # (Auto) 0.0 (0.0-1.0) 12/20/17 05:00 Neut # (Auto) 3.8 K/ul (2.0-6.9) 12/20/17 05:00 Lymph # (Auto) 1.9 K/uL (0.60-3.4) 12/20/17 05:00 Wilkinson # (Auto) 0.7 K/uL (0.4-2.0) 12/20/17 05:00 Eos # (Auto) 0.5 K/ul (0.0-0.7) 12/20/17 05:00 Baso # (Auto) 0.1 K/uL (0-0.2) 12/20/17 05:00 D-Dimer (Manual) 1745.61 ng/mL (<500) 12/18/17 20:15 Puncture Site Lb 12/18/17 20:21 O2 Saturation 96.0 % (95-100) 12/18/17 20:21 ABG pH 7.461 (7.35-7.45) H 12/18/17 20:21 ABG pCO2 28.4 mmHg (35-45) L 12/18/17 20:21 ABG pO2 75.0 mmHg (85-100) L 12/18/17 20:21 ABG HCO3 20.2 (22.0-26.0) L 12/18/17 20:21 ABG Total CO2 21 (22.0-28.0) L 12/18/17 20:21 ABG Base Excess -4 (-2.0-2.0) L 12/18/17 20:21 Tone Test + 12/18/17 20:21 FiO2 % 21.0 % 12/18/17 20:21 Sodium 140 mmol/L (136-145) 12/20/17 05:00 Potassium 3.5 mmol/L (3.5-5.1) 12/20/17 05:00 Chloride 103 mmol/L (98-107) 12/20/17 05:00 Carbon Dioxide 26 mmol/L (23-31) 12/20/17 05:00 Anion Gap 14.5 12/20/17 05:00 BUN 17 mg/dL (7-18) 12/20/17 05:00 Creatinine 1.07 mg/dL (0.60-1.10) 12/20/17 05:00 Estimated GFR (MDRD) 70.00 mL/min 12/20/17 05:00 BUN/Creatinine Ratio 15.88 12/20/17 05:00 Glucose 90 mg/dL (82-115) 12/20/17 05:00 Lactic Acid 19.4 mg/dL (4.5-19.8) 12/18/17 20:15 Calcium 9.2 mg/dL (8.2-10.2) 12/20/17 05:00 Magnesium 1.9 mg/dL (1.7-2.2) 12/18/17 20:15 Total Bilirubin 0.8 mg/dL (0.00-1.20) 12/18/17 20:15 AST 35 U/L (15-37) 12/18/17 20:15 ALT 48 U/L (12-78) 12/18/17 20:15 Alkaline Phosphatase 175 U/L (56-119) H 12/18/17 20:15 Total Creatine Kinase 92 U/L 12/18/17 20:15 Troponin I 0.0370 ng/ml (0.0000-0.4000) 12/19/17 01:25 B-Natriuretic Peptide 3429 pg/mL (0-100) H 12/18/17 20:15 Total Protein 8.0 g/dL (5.8-8.1) 12/18/17 20:15 Albumin 3.8 g/dL (3.4-5.0) 12/18/17 20:15 Globulin 4.2 12/18/17 20:15 Albumin/Globulin Ratio 0.90 12/18/17 20:15 Triglycerides 87 mg/dL (30-150) 12/19/17 01:25 Cholesterol 168 mg/dL (0-200) 12/19/17 01:25 LDL Cholesterol, Calc 119 mmol/L 12/19/17 01:25 VLDL Cholesterol 17 mg/dL (2-30) 12/19/17 01:25 HDL Cholesterol 32 mg/dL (35-60) L 12/19/17 01:25 Cholesterol/HDL Ratio 5.3 (4.5-6.4) 12/19/17 01:25 Amylase 40 U/L (25-115) 12/18/17 20:15 Lipase 35 U/L (8-78) 12/18/17 20:15 Procalcitonin < 0.05 ng/mL (<0.05) 12/18/17 20:15 TSH 1.359 uIU/L (0.3400-4.8200) 12/19/17 01:25 Free T4 1.26 ng/dL (0.59-1.17) H 12/19/17 01:25 Urine Opiates Screen Negative (NEGATIVE) 12/19/17 02:30 Ur Oxycodone Screen Negative (NEGATIVE) 12/19/17 02:30 Urine Methadone Screen Negative (NEGATIVE) 12/19/17 02:30 Ur Propoxyphene Screen Negative (NEGATIVE) 12/19/17 02:30 Ur Barbiturates Screen Negative (NEGATIVE) 12/19/17 02:30 U Tricyclic Antidepress Negative (NEGATIVE) 12/19/17 02:30 Ur Phencyclidine Scrn Negative (NEGATIVE) 12/19/17 02:30 Ur Amphetamine Screen Negative (NEGATIVE) 12/19/17 02:30 U Methamphetamines Scrn Negative (NEGATIVE) 12/19/17 02:30 U Benzodiazepines Scrn Negative (NEGATIVE) 12/19/17 02:30 Urine Cocaine Screen Negative (NEGATIVE) 12/19/17 02:30 U Cannabinoids Screen Negative (NEGATIVE) 12/19/17 02:30 (1) Congestive heart failure Status: Acute Code(s): I50.9 - HEART FAILURE, UNSPECIFIED SNOMED Code(s): 21375019 (2) Dilated cardiomyopathy Status: Acute Code(s): I42.0 - DILATED CARDIOMYOPATHY SNOMED Code(s): 912688633 (3) Pleural effusion Status: Acute Code(s): J94.8 - OTHER SPECIFIED PLEURAL CONDITIONS SNOMED Code(s): 44463393 (4) Hepatitis C antibody positive in blood Status: Acute Code(s): R76.8 - OTHER SPECIFIED ABNORMAL IMMUNOLOGICAL FINDINGS IN SERUM SNOMED Code(s): 350330345 (5) History of intravenous drug abuse Status: Acute Code(s): Z87.898 - PERSONAL HISTORY OF OTHER SPECIFIED CONDITIONS SNOMED Code(s): 76449601805029877 (6) History of drug abuse Status: Acute Code(s): Z87.898 - PERSONAL HISTORY OF OTHER SPECIFIED CONDITIONS SNOMED Code(s): 058986703 (7) Former smoker Status: Acute Code(s): Z87.891 - PERSONAL HISTORY OF NICOTINE DEPENDENCE SNOMED Code(s): 7576875 (8) Anemia Status: Acute Code(s): D64.9 - ANEMIA, UNSPECIFIED SNOMED Code(s): 503084133 (9) Nausea Status: Resolved Code(s): R11.0 - NAUSEA SNOMED Code(s): 781642338 (10) Vomiting Status: Resolved Code(s): R11.10 - VOMITING, UNSPECIFIED SNOMED Code(s): 325618387 (11) 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 Dr. Olson saw him yesterday. He has had good diuresis. We will get home med list from 1 year ago from cardiology and try to update this. SOA is better. Vitals okay. Continue saline lock, no fluids for now. Weight is down from intake 11 lb, from last recorded 170 another 4 lb. He just filled urinal before I walked back into room. Reports 1000% bettter, feeling back to nromal and wants to go home. BP stable, HR stable. - Monitor weight - Daily CBC/CMP - MOnitor renal function - Continue 81mg EC ASA. This was listed as chewable, I changed it to EC. - Continue losartan. NSVT: Rate 180-190. 12 beats. Cardiology Echo today. Likely resume BB in next 24 hours. Consider coreg 3.125 1/2 po BID. Get home meds to see what worked for him. - Nursing to get records today. Elevated TSH: At this time this may be spurious. I would like to check a T3 and then consider repeat checking TSH/Free T4 in 8 weeks. I believe this is transiently elevated from acute illness. Hyperlipidemia: ASCVD >7.5%. I will start him on lipitor 20mg. - Lipitor 20mg to start today. Low normal K+: I will also replace K+ with 20meq daily of oral K+CL-. Monitor K + as Losartan + K can lead to K+ changes. N/V: X1 yesterday else he has not had anything since lunch time yesterday. I will tentatively angelica this as resolved. He did well after GI cocktail x1 and continuation of tagamet. Eating meals, doing well. DVT PRophy: - Continue lovenox GI Prophy: - Tagamet. Activity: - Ad hernan Diet: - Continue 2G salt restrict Dispo: If he continues to improve, we will possibly d/c patient home tomorrow with resume home meds. Would recommend he meet with PCP out patient and to meet with cardiology as well.
[2017-12-20] MEDS ORDERED: K-DUR PO SCH (08:00)
[2017-12-20] MEDS: ASPIRIN CHEWABLE PO SCH (08:52)
[2017-12-20] MEDS: MULTIVITAMIN TABLET PO SCH (08:55)
[2017-12-20] MEDS: LOVENOX SUBCUT SCH (08:56)
[2017-12-20] MEDS: PROTONIX IV IVP SCH (08:58)
[2017-12-20] MEDS ORDERED: COZAAR PO SCH (09:00)
--- NOTE | 2017-12-20 09:22 | CONS ---
DATE OF CONSULTATION: 12/19/17 REASON FOR CONSULTATION: Shortness of breath worsening over a period of one to two weeks with symptoms of CHF. HISTORY OF PRESENT ILLNESS: 62 year old white male was brought to the emergency room 12/19/17 with complaint with being short of breath worsening over a period of 1-2 weeks. According the patient he was able to sleep for three nights because of being short of breath and having nausea, he has to sit up to breathe. Going back to three to four years ago the patient was hospitalized under [facility] under Hospitalist and was treated by Dr. Chicas for 2-3 days and was transferred to [facility] [place] where the patient underwent Cardiac Catheterization. According the patient the coronary arteries were normal. Took medications for nearly a year, after that he stopped taking the medications and going to the physicians. He had done well for a couple of years until moments to hospitalization when he starting noticing being short of breath. The patient has been doing carpentry work and construction work. He says that he has quit smoking nearly 8-9 months ago and hasn't been using any drug use for past 2-3 months. REVIEW OF SYSTEMS: CONSTITUTIONAL: No night sweats. Weakness and fatigue. No fever or chills. HEENT: Eyes: No visual changes. No eye pain. No eye discharge. ENT: No sinus drainage. No epistaxis. No sinus pain. No sore throat. No odynophagia. No ear pain. No congestion. RESPIRATORY: Mild cough, no congestion. No hemoptysis. Shortness of breath on minimal exertion. CARDIOVASCULAR: No angina symptoms. No CHF symptoms. No atypical chest pain for CAD. No palpitations. History consistent with PND and orthopnea. GASTROINTESTINAL: No abdominal pain. Nausea and vomiting a couple of times prior to hospitalization. No diarrhea or constipation. No hematemesis. No hematochezia. GENITOURINARY: No urgency. No frequency. No dysuria. No hematuria. No obstructive symptoms. No discharge. No pain. No significant abnormal bleeding. MUSCULOSKELETAL: No musculoskeletal pain. No joint swelling. NEUROLOGICAL: No headache. No neck pain. No syncope. No seizures. No dizziness. PSYCHIATRIC: Not anxious. No depression. No suicidal thoughts. No homicidal thoughts. SKIN: No rash. No lesions. No wounds. ENDOCRINE: No unexplained weight loss. No weight gain. HEMATOLOGIC/LYMPHATIC: No anemia. No purpura. No petechiae. No prolonged or excessive bleeding. No palpable lymph nodes. MEDICATIONS: Aspirin Omeprazole Zyrtec over the counter medications ALLERGIES: No known allergies. PAST MEDICAL HISTORY: Dilated cardiomyopathy with history of CHF 07/07/15 with ejection fraction was 25% with paradoxical septal wall with base septum. SOCIAL/PERSONAL/FAMILY HISTORY: The patient is single and lives with the mother. Stop smoking 8-9 months ago. No history of drug abuse recently. 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 PHYSICAL EXAMINATION: GENERAL: The patient is oriented to time, place and person, laying in the bed comfortably. VITAL SIGNS: Temperature 98, pulse 90, respiratory rate 16, blood pressure 125/ 70 and pulse ox 93% on room air. HEENT: Head normocephalic, atraumatic. Eyes: Extraocular muscles are intact. Pupils are equal, round and reactive to light and accommodation. Ears: No lesions. Nose appeared normal. Throat: No exudate or erythema. NECK: Supple. No JVP, no carotid bruit. No lymphadenopathy or thyromegaly. LUNGS: Decreased breath sounds with few crepitations. Good air entry. Percussion note normal. Chest symmetrical. HEART: S1, S2, no S3. No murmurs. No cyanosis or clubbing. No ascites. Pulses: Dorsalis pedis and posterior tibial pulses +2 bilaterally. ABDOMEN: Soft. Nontender. Bowel sounds active. No CVA tenderness. No mass felt. EXTREMITIES: No edema. Full range of motion of all extremities, equal. NEUROLOGIC: No focal deficit. Cranial nerves II through XII are grossly intact. No headache, no double vision or headache. SKIN: Not dry. Intact. Turgor - normal. LYMPHATIC: No palpable lymph nodes/no lymphedema. MUSCULOSKELETAL: Normal joints with no swelling. Muscle tone is normal. LABS: Hgb 13.2, hct 39, WBC 9,000 normal differential, creatinine 0.9, BUN 18, potassium 4.5. BNP 3,429. ASSESSMENT: 1. Congestive heart failure 2. Dilated cardiomyopathy 3. Former smoker with likely COPD RECOMMENDATIONS: 1. Agreed with IV Lasix 2. Aggressive diuretic therapy 3. Monitor daily CBC and CMP 4. Telemetry 5. Oximetry 6. TSH 7. T4 has been ordered 8. Echocardiogram 2D M mode to be evaluate LV function 9. NEBS treatment as ordered 10.Baby Aspirin 11.Will add unloading agent 12.Cozaar 25mg PO daily 13.Depending upon the LV function will decided whether to add Alpha Beta Shivani like Carvedilol in small dose along with ERB or Basil Inhibitor. 14.The patient's education carried out, the Mom was present 15.The patient strongly advised to have followup with primary care regularly CONDITION: Stable Thanks for referral, Will follow. RENÉE
--- NOTE | 2017-12-20 09:47 | ECHO2D ---
Date of Exam: 12/20/17 Ordering Physician: DR. MCKENZIE WATKINS Room #: 104 Reason for Echo: CHF M-Mode Normal Adult Results LV Dimensions Normal Adult Results AoV Opening excursions >1.6 >1.6 LVEDD-base- 3.5-5.8 6.4 Ao root dimensions 2.0-3.7 4.0 LVESD-base- 3.1-4.6 L. Atrium dimensions 1.9-3.8 5.3 Post. Wall thickness 0.8-1.1 1.3 IV septum (thickness) 0.7-1.2 1.2 Post. Wall excursion 0.72-1.3 0.2 Septal motion Systolic motion R. Ventricular cavity 1.5-2.0 3.0 LVEF 60% 15% Paradoxical septal wall motion NORMAL 2-D : HYPOKINETIC LEFT VENTRICLE, NORMAL VALVES--NO EFFUSION, NO THROMBUS-- ENLARGED LEFT ATRIAL, RIGHT VENTRICLE AND LEFT VENTRICLE CAVITIES COLOR FLOW: MODERATE TO SEVERE MITRAL REGURGITATION M-MODE: MV: NORMAL AV: NORMAL TV: NORMAL PV: CHAMBER SIZE: ENLARGED LEFT ATRIAL, RIGHT VENTRICLE AND LEFT VENTRICLE CAVITIES WALL MOTION: SEVERE HYPOKINESIA OF LEFT VENTRICLE PERICARDIUM: NORMAL INTERPRETATION: 1. LEFT VENTRICULAR HYPERTROPHY 2. ENLARGED RIGHT VENTRICLE, LEFT ATRIAL AND LEFT VENTRICLE CAVITIES 3. SEVERELY HYPOKINETIC LEFT VENTRICLE WITH EJECTION FRACTION 15 TO 20% 4. MODERATE TO SEVERE MITRAL REGURGITATION MTDD
--- NOTE | 2017-12-20 16:03 | PCM.DC ---
Final Diagnosis: Congestive heart failure (Acute) Dilated cardiomyopathy (Acute) Anemia (Acute) Elevated TSH (Acute) Former smoker (Acute) Hepatitis C antibody positive in blood (Chronic) History of drug abuse (Chronic) History of intravenous drug abuse (Chronic) Low serum potassium (Acute) Pleural effusion (acute on Chronic) SVT vs NSVT seen on head silverman (Acute) (1) Congestive heart failure Status: Acute Code(s): I50.9 - HEART FAILURE, UNSPECIFIED SNOMED Code(s): 16196410 Qualifiers: Heart failure type: systolic Heart failure chronicity: acute on chronic Qualified Code(s): I50.23 - Acute on chronic systolic (congestive) heart failure (2) Dilated cardiomyopathy Status: Acute Code(s): I42.0 - DILATED CARDIOMYOPATHY SNOMED Code(s): 319024969 (3) Pleural effusion Status: Acute Code(s): J94.8 - OTHER SPECIFIED PLEURAL CONDITIONS SNOMED Code(s): 60247453 (4) Hepatitis C antibody positive in blood Status: Chronic Code(s): R76.8 - OTHER SPECIFIED ABNORMAL IMMUNOLOGICAL FINDINGS IN SERUM SNOMED Code(s): 498572724 (5) History of intravenous drug abuse Status: Acute Code(s): Z87.898 - PERSONAL HISTORY OF OTHER SPECIFIED CONDITIONS SNOMED Code(s): 87842757716225339 (6) History of drug abuse Status: Chronic Code(s): Z87.898 - PERSONAL HISTORY OF OTHER SPECIFIED CONDITIONS SNOMED Code(s): 571782219 (7) Former smoker Status: Acute Code(s): Z87.891 - PERSONAL HISTORY OF NICOTINE DEPENDENCE SNOMED Code(s): 8468262 (8) Anemia Status: Chronic Code(s): D64.9 - ANEMIA, UNSPECIFIED SNOMED Code(s): 995375393 Qualifiers: Anemia type: unspecified type Qualified Code(s): D64.9 - Anemia, unspecified (9) Nausea Status: Resolved Code(s): R11.0 - NAUSEA SNOMED Code(s): 371533132 (10) Vomiting Status: Resolved Code(s): R11.10 - VOMITING, UNSPECIFIED SNOMED Code(s): 830442858 (11) Ventricular tachycardia seen on head silverman Status: Acute Code(s): I47.2 - VENTRICULAR TACHYCARDIA SNOMED Code(s): 268500361 (12) Low serum potassium Status: Acute Code(s): E87.6 - HYPOKALEMIA SNOMED Code(s): 184934945 (13) Elevated TSH Status: Acute Code(s): R94.6 - ABNORMAL RESULTS OF THYROID FUNCTION STUDIES SNOMED Code(s): 987348009 Reason for Hospitalization: All Active Problems Congestive heart failure (Acute) Dilated cardiomyopathy (Acute) Anemia (Acute) Elevated TSH (Acute) Former smoker (Acute) Hepatitis C antibody positive in blood (Acute) History of drug abuse (Acute) History of intravenous drug abuse (Acute) Low serum potassium (Acute) Pleural effusion (Acute) SVT vs. Ventricular tachycardia seen on head silverman (Acute) Prognosis at Discharge: Guarded, poor with EF of 15%. Condition at Discharge: Stable Medications at Discharge: Ambulatory Orders Medication Instructions Recorded Multivitamin [Multi-Vitamin Daily] 1 each PO DAILY 08/21/15 Cetirizine HCl [Zyrtec] 10 mg PO DAILY 12/19/17 Acetaminophen [Tylenol] 650 mg PO Q4H PRN tablet 12/20/17 Aspirin [Aspirin EC] 81 mg PO DAILYWM tablet. 12/20/17 Atorvastatin Calcium [Lipitor] 20 mg PO BEDTIME tablet 12/20/17 Cimetidine [Tagamet] 400 mg PO QDAC tablet 12/20/17 Enoxaparin Sodium [Lovenox] 40 mg SUBCUT DAILY syr 12/20/17 Furosemide [Lasix] 20 mg IVP QDAC vial 12/20/17 Losartan Potassium [Cozaar] 25 mg PO DAILY tablet 12/20/17 Morphine Sulfate [Morphine 2 mg/ml 2 mg IVP Q4H PRN ml 12/20/17 Syringe] Multivitamin [Multivitamin Tablet] 1 tab PO DAILY tab 12/20/17 Ondansetron HCl/Pf [Zofran 4 mg/2 4 mg IVP Q6H PRN 7 Days ml 12/20/17 ml] Pantoprazole Sodium [Protonix IV] 40 mg IVP DAILY vial 12/20/17 Potassium Chloride [K-Dur] 20 meq PO DAILYWM tab 12/20/17 Lab/Diagnostics: H/H Trends 12/18/17 12/19/17 12/20/17 Range/Units 20:15 01:25 05:00 Hgb 13.5 L 13.2 L 11.9 L (14.0-18.0) g/dl Hct 40.6 L 39.1 L 35.3 L (42.0-52.0) % BUN/CR Trends 12/18/17 12/19/17 12/20/17 Range/Units 20:15 01:25 05:00 BUN 17 17 17 (7-18) mg/dL Creatinine 1.04 0.98 1.07 (0.60-1.10) mg/dL Laboratory Results - last 24 hr 12/20/17 12/20/17 12/20/17 05:00 05:00 13:40 WBC 6.87 RBC 4.14 L Hgb 11.9 L Hct 35.3 L MCV 85.3 MCH 28.7 MCHC 33.7 RDW Coeff of Mora 13.3 Plt Count 307 Immature Gran % (Auto) 0.3 Neut % (Auto) 54.6 Lymph % (Auto) 27.5 Otero % (Auto) 10.0 Eos % (Auto) 6.6 Baso % (Auto) 1.0 Immature Gran # (Auto) 0.0 Neut # (Auto) 3.8 Lymph # (Auto) 1.9 [place] # (Auto) 0.7 Eos # (Auto) 0.5 Baso # (Auto) 0.1 Sodium 140 Potassium 3.5 Chloride 103 Carbon Dioxide 26 Anion Gap 14.5 BUN 17 Creatinine 1.07 Estimated GFR (MDRD) 70.00 BUN/Creatinine Ratio 15.88 Glucose 90 Calcium 9.2 Troponin I 0.0280 Laboratory Results WBC 6.87 K/ul (4.2-10.2) 12/20/17 05:00 RBC 4.14 10^6/ul (4.70-6.10) L 12/20/17 05:00 Hgb 11.9 g/dl (14.0-18.0) L 12/20/17 05:00 Hct 35.3 % (42.0-52.0) L 12/20/17 05:00 MCV 85.3 fl (80.0-94.0) 12/20/17 05:00 MCH 28.7 pg (27.0-31.0) 12/20/17 05:00 MCHC 33.7 (31.8-35.4) 12/20/17 05:00 RDW Coeff of Mora 13.3 % (11.6-14.8) 12/20/17 05:00 Plt Count 307 10^3/uL (140-440) 12/20/17 05:00 Immature Gran % (Auto) 0.3 % (0.0-5.0) 12/20/17 05:00 Neut % (Auto) 54.6 12/20/17 05:00 Lymph % (Auto) 27.5 (10.0-50.0) 12/20/17 05:00 Otero % (Auto) 10.0 (0-10) 12/20/17 05:00 Eos % (Auto) 6.6 % (0.0-7.0) 12/20/17 05:00 Baso % (Auto) 1.0 % (0.0-3.0) 12/20/17 05:00 Immature Gran # (Auto) 0.0 (0.0-1.0) 12/20/17 05:00 Neut # (Auto) 3.8 K/ul (2.0-6.9) 12/20/17 05:00 Lymph # (Auto) 1.9 K/uL (0.60-3.4) 12/20/17 05:00 Otero # (Auto) 0.7 K/uL (0.4-2.0) 12/20/17 05:00 Eos # (Auto) 0.5 K/ul (0.0-0.7) 12/20/17 05:00 Baso # (Auto) 0.1 K/uL (0-0.2) 12/20/17 05:00 D-Dimer (Manual) 1745.61 ng/mL (<500) 12/18/17 20:15 Puncture Site Lb 12/18/17 20:21 O2 Saturation 96.0 % (95-100) 12/18/17 20:21 ABG pH 7.461 (7.35-7.45) H 12/18/17 20:21 ABG pCO2 28.4 mmHg (35-45) L 12/18/17 20:21 ABG pO2 75.0 mmHg (85-100) L 12/18/17 20:21 ABG HCO3 20.2 (22.0-26.0) L 12/18/17 20:21 ABG Total CO2 21 (22.0-28.0) L 12/18/17 20:21 ABG Base Excess -4 (-2.0-2.0) L 12/18/17 20:21 Tone Test + 12/18/17 20:21 FiO2 % 21.0 % 12/18/17 20:21 Sodium 140 mmol/L (136-145) 12/20/17 05:00 Potassium 3.5 mmol/L (3.5-5.1) 12/20/17 05:00 Chloride 103 mmol/L (98-107) 12/20/17 05:00 Carbon Dioxide 26 mmol/L (23-31) 12/20/17 05:00 Anion Gap 14.5 12/20/17 05:00 BUN 17 mg/dL (7-18) 12/20/17 05:00 Creatinine 1.07 mg/dL (0.60-1.10) 12/20/17 05:00 Estimated GFR (MDRD) 70.00 mL/min 12/20/17 05:00 BUN/Creatinine Ratio 15.88 12/20/17 05:00 Glucose 90 mg/dL (82-115) 12/20/17 05:00 Lactic Acid 19.4 mg/dL (4.5-19.8) 12/18/17 20:15 Calcium 9.2 mg/dL (8.2-10.2) 12/20/17 05:00 Magnesium 1.9 mg/dL (1.7-2.2) 12/18/17 20:15 Total Bilirubin 0.8 mg/dL (0.00-1.20) 12/18/17 20:15 AST 35 U/L (15-37) 12/18/17 20:15 ALT 48 U/L (12-78) 12/18/17 20:15 Alkaline Phosphatase 175 U/L (56-119) H 12/18/17 20:15 Total Creatine Kinase 92 U/L 12/18/17 20:15 Troponin I 0.0280 ng/ml (0.0000-0.4000) 12/20/17 13:40 B-Natriuretic Peptide 3429 pg/mL (0-100) H 12/18/17 20:15 Total Protein 8.0 g/dL (5.8-8.1) 12/18/17 20:15 Albumin 3.8 g/dL (3.4-5.0) 12/18/17 20:15 Globulin 4.2 12/18/17 20:15 Albumin/Globulin Ratio 0.90 12/18/17 20:15 Triglycerides 87 mg/dL (30-150) 12/19/17 01:25 Cholesterol 168 mg/dL (0-200) 12/19/17 01:25 LDL Cholesterol, Calc 119 mmol/L 12/19/17 01:25 VLDL Cholesterol 17 mg/dL (2-30) 12/19/17 01:25 HDL Cholesterol 32 mg/dL (35-60) L 12/19/17 01:25 Cholesterol/HDL Ratio 5.3 (4.5-6.4) 12/19/17 01:25 Amylase 40 U/L (25-115) 12/18/17 20:15 Lipase 35 U/L (8-78) 12/18/17 20:15 Procalcitonin < 0.05 ng/mL (<0.05) 12/18/17 20:15 TSH 1.359 uIU/L (0.3400-4.8200) 12/19/17 01:25 Free T4 1.26 ng/dL (0.59-1.17) H 12/19/17 01:25 Urine Opiates Screen Negative (NEGATIVE) 12/19/17 02:30 Ur Oxycodone Screen Negative (NEGATIVE) 12/19/17 02:30 Urine Methadone Screen Negative (NEGATIVE) 12/19/17 02:30 Ur Propoxyphene Screen Negative (NEGATIVE) 12/19/17 02:30 Ur Barbiturates Screen Negative (NEGATIVE) 12/19/17 02:30 U Tricyclic Antidepress Negative (NEGATIVE) 12/19/17 02:30 Ur Phencyclidine Scrn Negative (NEGATIVE) 12/19/17 02:30 Ur Amphetamine Screen Negative (NEGATIVE) 12/19/17 02:30 U Methamphetamines Scrn Negative (NEGATIVE) 12/19/17 02:30 U Benzodiazepines Scrn Negative (NEGATIVE) 12/19/17 02:30 Urine Cocaine Screen Negative (NEGATIVE) 12/19/17 02:30 U Cannabinoids Screen Negative (NEGATIVE) 12/19/17 02:30 Echocardiogram: Per cardiology minimal movement of septum, EF 15% worse than 2015. PENDING: Hep C quant PCR + Genotypte H. Pylori stool ag Education Provided to Patient and Family: 1. Need for transfer to outlying facility to meet with cardiology. 2. Compliance. Need to f/u with lab tests and needed imaging studies/work up. 3. Need to take medications as recommended. 4. Reviewed Echo with patient/family 5. Discussed results from 2015 hospitalization. Reviewed life vest. 6. Discussed heart failure and reasons for the need to be compliant. 7. Continue smoking cessation, praise given. 8. Continue to avoid drugs/stimulants. 9. Need for w/u of hepatitis C (as outpatient). Follow-ups: Transfer to [place], Dr. Dior accepting. Disposition: TSF OTHER Hospital Course: Hospital Course: 62 yr old WM patient was seen by me in room 104 of [facility] with Phuong Rodriguez mother at bedside. Patient has history of CHF, history of dilated cardiomyopathy and was found to be SOA and to have persistent N/V. Labs in Er completed, ddimer elevated (negative CT PE protocool), +BNP, +SOA, N/V and ER felt him to be in CHF exacerbation. No recent hospitalizations, no PCP, no cardiology. Last admit was 07/06/15 and transfer to to Dr. Hernandez. Dx at that time with acute and chronic systolic CHF, Echo w/ 20% EF, dilated cardiomyopathy. Patient with history of hep C (unknown tx status), Recreational drug use/IV drug use remotely , no use in 2-3 months (SPEED and THC), GERD, OA. He was seen/tx at put into [facility], did this 6-8 months hated it and swore to never use it again. He used medications for 9-12months, rx and he stopped them. Works as bor[employer], just wants to get back to work. SOA worsening over the last 1 week per patient (since new year per mother) and daily nausea/vomiting x1-2 has turned into inability to stop. Tagemet is only thing that works per his report. NO recent care, no recent labs, no known recent weights. Admit weight was 177. SOA all the time, exertional and at rest. Swelling of legs reported but not appreciable on exam. I was able to see back in our records the admit from 2014 and his weight then was 149 lb. He noted he quit smoking and thus gained more weight from eating. He has been eating out frequently, consuming large amounts of salt. Last Meal am prior to admit was oatmeal. Weight at admit was 177 and was down to 170 after 1 dose of lasix. Urine output was very good on single dose of 20mg IV lasix. Prominent N/V w/ 6-8 during the initial evaluation. GI coctail was given, tagamet was given and he slept the remainder of the morning (admit done 12/19/17 12am). I checked back on patient around 11:30 am on 12/19/17 and he had a very good diuresis. Eating, felt 1000% better per his report. Ate his breakfast and lunch. He had 1225 ml output in 1 shift and weight dropped from 177 at admit to 166 today. Intake & Output 12/17/17 12/18/17 12/19/17 12/20/17 23:59 23:59 23:59 23:59 Intake Total 2515 1090 Output Total 2325 1900 Balance 190 -810 Weight 177 lb 170 lb 166 lb 4 oz Labs ordered/reviewed and mild anemia, creatinine was stable and liver enzymes were stable, lipids were up a little. Moderate right sided pleural effusion and moderate left sided pleural effusion seen on CT from 12/19/17 and 06/2015 CT. UDS 12/19/17 was negative. Labs 12/20/17 showed that his cbc was stable, creatinine was stable after dose of lasix. Echo done am of 12/20/17, losartan started by cardiology, I started lipitor. Echo returned as worsening EF down to 15%-20%. Severe dilated cariomyopathy. Dr. Kent contacted me by phone at around 11 am this am (12/20/17) and recommended cardiac evaluation by and recommended transfer. Patient was not interested in transfer, thought about signing out AMA but eventually agreed to transfer. The patient has been on lovenox entire hospital stay, no rashes noted, no skin breakdown noted. CHF is improved compared to yesterday, weight is better by at least 3.5 lb. Creatinine remains stable. Clinically he does look improved, but he needs further w/u and to resume the w/u that was started in 2015. K+ at 3.5 was low normal. 20meq daily of KDur started. Sodium stable 140, Calcium stable. ABG reviewed and partially compensated primary respiratory alkalosis vs acute superimposed on chronic primary respiratory alkalosis or most likely mixed acute respiratory alkalosis with a small metabolic acidosis. Monitored CBC/CMP in hospital. Cr mild elevation but okay at 1.07. Glucose 90. Mild anemia at 11.9. Lipid panel looked okay yesterday trig 87, total 168, LDL 119 and HDL 32. ASCVD risk of 8.2 supports moderate statin to be of benefit. I added lipitor 20mg daily to his regimen. Total time on transfer today was 30 minutes. Imaging Studies: Reviewed CT REport from 2015 and this showed ?Aneurysm of aorta> CT today did not show this. No e/o PE despite elevated Ddimer. Bilateral pleural effusions non specific and seem to be the same right sided moderate pleural effusions seen in 2015. NO aneursym is seen now. Day of Discharge Physical Examination: Constitutional: Appearance- Calm/ comfortable, sleeping, no respiratory distress, no reports of pain. Talks in full sentences. Thankful. Pleasant. Orientation- Oriented x 3, alert Integumentary: General-No rashes, ulcers or lesions. Palpation- Normal skin moisture/turgor. Skin is warm to touch, appropriate. Capillary refill is normal bilateral Upper and lower extremity. +Clubbing bilateral hands. Head/Neck: Head- normocephalic and atraumatic. Neck- without visible/palpable lumps or pulsations. Palpation- No bony tenderness about head/neck along frontal, occipital, temporal, parietal, mastoid, jawline, zygoma, orbit or any other location.~ NO temporal artery tenderness. No TMJ tenderness. Neck Supple. Thyroid-No thyromegaly, no nodules Eye: Bilaterally PERRLA, EOMI. No discharge. Upper and lower eyelids are normal. Sclera/conjunctiva normal without discharge. Cornea is normal and clear. Lens is normal. Eyeball appears normal. No ciliary flushing, no conjunctival injection. ENMT: Nares- bilateral quiet airflow, no discharge. Nasal mucosa- No bleeding noted and no ulcerations observed. [place], moist. Turbinates non boggy. Lips- normal color, moist without cracks/lesions Oral Cavity/Palate- hard/soft palate intact without lesions, POOR DENTITION. oral mucosa pink and moist. Tongue normal midline. Oropharynx- no pharyngeal erythema, Uvula midline. No post nasal drip. No exudate. Salivary glands- Non tender to palpation CHEST/LUNG: Inspection- symmetric chest wall no pectus deformity. Normal effort , no respiratory distress noted, no use of accessory muscles. Palpation- nontender sternum, ribline. No abnormal pulsations. Auscultation- Breath sounds diminished throughout all lung donis but clear. Normal tracheal sounds , Normal bronchial sounds overlying sternum, Bronchovessicular sounds normal between scapulae posteriorly, Adventitious sounds- No wheezes, rhonchi. He has no egophany, no pectoriloquy. NO rales today. CARDIOVASCULAR: Carotid artery- normal, no carotid bruits, no abdominal bruit, or abnormal pulsations. Jugular vein- no pulsations. No appreciable HJR. Palpation/Percussion- PMI infero laterally displaced. no palpable thrill Auscultation- Sinus tachy with in-rhythm. I did not appreciate murmur noted in sitting position. +S3 Gallop and + Intermittent split S1 and S2, did not appear to be paradoxically split. Extremities- digital clubbing, No cyanosis, no increased warmth. Edema bilateral LE is mild and much less than I expected. ABDOMEN: Inspection- normal and no visible pulsations. Normal contour. Auscultation- Bowel sounds normal, no abdominal bruits. Palpation/Percussion- soft, non-tender RUQ/LUQ/RLQ/LLQ, tender over epigastric region, no rebound tenderness, no rigidity (guarding), no jar tenderness, no masses. Liver- hepatomegaly 2.5 fingers below costal margin. Spleen no splenomegaly, Hernias- none. Rectal not examined. Peripheral Vascular: Upper extremity Left- Normal temperature with pink nailbeds and no ulcerations. Upper extremity Right- Normal temperature with pink nailbeds and no ulcerations. Lower extremity- Normal temperature with pink nailbeds and no ulcerations. DP pulses 2+ bilaterally. Pedal hair intact. Normal capillary refill. Edema- No edema. Neurological: General- Moves all 4 extremities symmetrically. Symmetrical face and body posture. Cranial nerves- individually evaluated II-XII and intact. PERRLA, Normal EOMI, visual/special senses appear intact, Face is symmetrical and normal sensation/movement, normal tongue, normal strength/posture of neck musculature. Reflexes- intact with DTR 2+ patellar, Achilles, bicep, brachial, tricep. Ankle clonus normal with 2 beats. Strength- 5/5 bilateral UE and LE. Soft touch- intact bilateral UE and LE. Temperature sensation- intact bilateral UE and LE. Neuropsych: Oriented- Person, place, time. (AAOx3), Mood/affect- normal and congruent. Able to articulate well. Speech-Normal speech, normal rate, normal tone, normal use of language, volume and coherence. Thought content- normal with ability to perform basic computations and apply abstract thought/reason. Associations- intact, no SI/HI, no hallucinations, delusions, obsessions. Judgment/insight- Questionable Memory-Recall intact, remote and recent memory intact. Knowledge- Questionable Lymphatic: Head/Neck- normal size and non tender to palpation. Axillary- normal size and non tender to palpation. Femoral and Inguinal- normal size and non tender to palpation. Plan: 1. Trasnfer to [facility] Dr. Dior room 443 2. Transfer via ambulance 3. Patient can f/u in clinic with me if desired to have outpatient PCP. 4. Obtained records from Dr. Hernandez, reviewed 07/10/15 notes. Reviewed.
[2017-12-20 17:02] VITALS: BP 102/65; TEMP 98.2
[2017-12-20] MEDS ORDERED: LIPITOR PO SCH (21:00)
[2017-12-21] MEDS ORDERED: ASPIRIN EC PO SCH (08:00)
--- NOTE | 2017-12-24 10:38 | CONS ---
DATE OF SERVICE: 12/20/17 CONSULT FOLLOWUP SUBJECTIVE: The patient is feeling a lot better. REVIEW OF SYSTEMS: CONSTITUTIONAL: No night sweats. No fatigue, malaise, lethargy. No fever or chills. HEENT: Eyes: No visual changes. No eye pain. No eye discharge. ENT: No runny nose. No epistaxis. No sinus pain. No sore throat. No odynophagia. No ear pain. No congestion. RESPIRATORY: No cough, no congestion. No hemoptysis. CARDIOVASCULAR: No angina symptoms. No CHF symptoms. No atypical chest pain for CAD. No palpitations. Shortness of breath on exertion. GASTROINTESTINAL: No abdominal pain. No nausea or vomiting. No diarrhea or constipation. No hematemesis. No hematochezia. GENITOURINARY: No urgency. No frequency. No dysuria. No hematuria. No obstructive symptoms. No discharge. No pain. No significant abnormal bleeding. MUSCULOSKELETAL: No musculoskeletal pain. No joint swelling. No arthritis. NEUROLOGICAL: No headache. No neck pain. No syncope. No seizures. No dizziness. PSYCHIATRIC: Not anxious. No depression. No suicidal thoughts. No homicidal thoughts. SKIN: No rash. No lesions. No wounds. ENDOCRINE: No unexplained weight loss. No weight gain. HEMATOLOGIC/LYMPHATIC: No anemia. No purpura. No petechiae. No prolonged or excessive bleeding. No palpable lymph nodes. PHYSICAL EXAMINATION: GENERAL: The patient is oriented to time, place and person. VITAL SIGNS: Temperature 97.9, pulse 80, respiratory rate 14, BP 108/70, pulse ox 92% on room air. HEENT: Head normocephalic, atraumatic. Eyes: Extraocular muscles are intact. Pupils are equal, round and reactive to light and accommodation. Ears: No lesions. Nose appeared normal. Throat: No exudate or erythema. NECK: Supple. No JVD, no carotid bruit. No lymphadenopathy or thyromegaly. LUNGS: Decreased breath sounds but clear to auscultation. Percussion note normal. Chest symmetrical. HEART: S1, S2, no S3. No murmurs. No cyanosis or clubbing. No ascites. Pulses: Dorsalis pedis and posterior tibial pulses +2 bilaterally. ABDOMEN: Soft. Nontender. Bowel sounds active. No CVA tenderness. No mass felt. EXTREMITIES: No edema. Full range of motion of all extremities, equal. NEUROLOGIC: No focal deficit. Cranial nerves II through XII are grossly intact. No headache, no double vision or headache. SKIN: Not dry. Intact. Turgor - normal. LYMPHATIC: No palpable lymph nodes/no lymphedema. MUSCULOSKELETAL: Normal joints with no swelling. Muscle tone is normal. LABS: Hemoglobin 11.9, hematocrit 35, WBC 6,800, normal differential. Creatinine 1, BUN 17 ASSESSMENT: 1. CHF SEEMS TO BE UNDER CONTROL 2. DILATED CARDIOMYOPATHY 3. HISTORY OF SMOKING 4. HISTORY OF DRUG ABUSE 5. NONCOMPLIANCE Echo showed severely dilated cardiomyopathy with ejection fraction 15 to 20%. The patient's echo compared seems to be that the patient's ejection fraction has been lower than previous echo done in 2015. The case is discussed with Dr. Peralta. The strip patient had of 10 beats to 12 beats of tachyarrhythmia seems to be SVT with rate of 180 to 200/min, narrow QRS complexes. The patient has dilated cardiomyopathy, etiology could be viral along with several contributing risk factors like smoking, alcohol, and drug abuse. The patient is noncompliant and has had no followup with any M.D. for the past two years or more. RECOMMENDATIONS: 1. Advised the patient to be transferred to [facility] where he had his cardiac catheterization and care given by Dr. Hernandez. He had a life vest at that time because of poor ejection fraction. 2. Considering patient's history, echo findings, he could be a candidate for heart transplant. The patient strongly advised to take medications on a regular basis. 3. Needs to be evaluated for cardiac rehab which could be done after he is referred to [facility]. CONDITION: Stable. MTDD
--- NOTE | 2017-12-24 10:40 | CONS ---
CODING FOR BILLING 12/19/17 LEVEL 5 12/20/17 EXTENSIVE MTDD
== END 2017-12-20 17:07 | disposition short-term general hospital (02) | DRG 292 ==
LOC: ED 19:49 → MEDSURG A 12-19
PROVIDERS: ADMIT Family Medicine; ATTEND Family Medicine
DX: I50.23 Acute on chronic systolic (congestive) heart failure (principal); I42.0 Dilated cardiomyopathy; I47.2 Ventricular tachycardia; J90 Pleural effusion, not elsewhere classified; R06.02 Shortness of breath; R11.2 Nausea with vomiting, unspecified; R10.816 Epigastric abdominal tenderness; R10.13 Epigastric pain; D64.9 Anemia, unspecified; R76.8 Other specified abnormal immunological findings in serum; R94.6 Abnormal results of thyroid function studies; E87.6 Hypokalemia; Z87.891 Personal history of nicotine dependence; Z87.898 Personal history of other specified conditions
CPT/HCPCS: 36415; 80048; 80053; 80061; 80306; 82150; 82550; 82803; 83605; 83690; 83735; 83880; 84145; 84439; 84443; 84480; 84484; 85025; 85379; 87040; 87522; 87902; 93005; 93010; 96374; 96376; 99223; 99239; 99284

== ENCOUNTER 2017-12-20 17:10 | Outpatient (CLI) | END 2017-12-20 17:11 | disposition short-term general hospital (02) | LOC: AMBL 17:10 | PROVIDERS: ATTEND Internal Medicine | DX: R07.9 Chest pain, unspecified (principal); I45.4 Nonspecific intraventricular block; I49.3 Ventricular premature depolarization; I50.9 Heart failure, unspecified ==

== ENCOUNTER 2022-09-10 17:41 | Observation (INO) ==
[2022-09-10 19:53] LABS: BASOPHILS # (AUTO) 0.1 K/uL (0-0.2); BASOPHILS % (AUTO) 1.6 % (0.0-3.0); EOSINOPHILS # (AUTO) 0.1 K/ul (0.0-0.7); EOSINOPHILS % (AUTO) 0.9 % (0.0-7.0); HEMATOCRIT 38.8 % (42.0-52.0); HEMOGLOBIN 12.9 g/dl (14.0-18.0); IMMATURE GRANULOCYTE % (AUTO) 0.2 % (0.0-5.0); LYMPHOCYTES # (AUTO) 0.9 K/uL (0.60-3.4); LYMPHOCYTES % (AUTO) 15.6 (10.0-50.0); MEAN CORPUSCULAR HEMOGLOBIN 28.5 pg (27.0-31.0); MEAN CORPUSCULAR HGB CONC 33.2 (31.8-35.4); MEAN CORPUSCULAR VOLUME 85.7 fl (80.0-94.0); MONOCYTES # (AUTO) 1.3 K/uL (0.4-2.0); MONOCYTES % (AUTO) 22.3 (0-10); NEUTROPHILS # (AUTO) 3.4 K/ul (2.0-6.9); NEUTROPHILS % (AUTO) 59.4 % (42.2-75.2); PLATELET COUNT 433 10^3/uL (140-440); RDW COEFFICIENT OF VARIATION 13.2 % (11.6-14.8); RED BLOOD COUNT 4.53 10^6/ul (4.70-6.10)
[2022-09-10 19:58] LABS: ABG O2 HGB 92.7 % (95-100); BEecf 0.8 (-2.0-3.0); COHb 2.4 (0.5-1.5); HCO3 23.7 (21-28); MetHb 0.6 (0-1.5); TCO2 24.6 (19-24); sO2 95.7 % (94-98); tHb 13.5 g/dl (11.7-17.4)
[2022-09-10 19:59] LABS: ABG PH 7.52 (7.35-7.45)
[2022-09-10] MEDS ORDERED: ZOFRAN ODT PO ONE (20:00)
[2022-09-10 20:04] LABS: ALANINE AMINOTRANSFERASE 35.6 U/L (0-50); ALBUMIN 4.19 g/dL (3.5-5.0); ALKALINE PHOSPHATASE 177.3 U/L (56-119); ASPARTATE AMINO TRANSFERASE 40.5 U/L (17-59); BILIRUBIN,TOTAL 0.58 mg/dL (0.2-1.3); BLOOD UREA NITROGEN 23.3 mg/dL (9-20); CALCIUM 9.22 mg/dL (8.4-10.2); CARBON DIOXIDE 22.6 mmol/L (22-30.0); CHLORIDE 104.8 mmol/L (98-107); GLUCOSE 119.3 mg/dL (74-106); POTASSIUM 3.57 mmol/L (3.5-5.1); SODIUM 137.1 mmol/L (134.5-145); TOTAL PROTEIN 7.5 g/dL (6.3-8.2)
[2022-09-10 20:15] LABS: TROPONIN I 0.059 ng/ml (0.0000-0.120)
--- NOTE | 2022-09-10 20:23 | ED.PDOC ---
General ED Provider: Dr. TINO COHEN Chief Complaint: Respiratory Complaint Stated Complaint: i was sob --found to be in afib with rvr Time Seen by Provider: 09/10/22 19:31 Mode of Arrival: Walk-In Information Source: Patient Exam Limitations: No limitations Nursing and Triage Documentation Reviewed and Agree: Yes Does patient meet sepsis criteria?: No System Inflammatory Response Syndrome: Not Applicable Sepsis Protocol: For patient's 13 years and over: Temp is 96.8 and below OR 101 and greater Pulse >90 BPM Resp >20/minute Acutely Altered Mental Status Are patient's symptoms suggestive of a new infection, such as: -Pneumonia -Skin, Soft Tissue -Endocarditis -UTI -Bone, Joint Infection -Implantable Device -Acute Abdominal Infection -Wound Infection -Meningitis -Blood Stream Catheter Infection -Unknown Respiratory Complaint Exam Shortness of Air Complaint/Exam Onset/Duration: this pm Symptoms Are: Still present Timing: Intermittent Initial Severity: Mild Current Severity: Mild Character: Reports Dyspnea at rest Aggravating: Reports None Alleviating: Reports None Related History: Reports Similar episode History of Healthcare-Acquired Pneumonia: No Home Oxygen Use: No Recent Stress Test: No Recent Echo/LV Function: No Respiratory Distress: None Stridor Present: No Tracheal Deviation: No Subcutaneous Emphysema: No Accessory Muscle Use: No Retractions: Not Present Diminished Breath Sounds: No Prolonged Expiratory Phase: No Unable to Speak Full Sentences: No Fatigue: Yes Leg Swelling: No Pelon's Sign Present: No Grunting Respirations: No Kussmaul Respirations: No Differential Diagnoses: Other Quality Indicator For Non-Traumatic Chest Pain/Syncope: EKG Performed Review of Systems Review Of Systems Constitutional: Reports No symptoms Eyes: Reports No symptoms Ears, Nose, Mouth, Throat: Reports No symptoms Respiratory: Reports Short of air Cardiac: Reports Irregular heart rate GI: Reports No symptoms : Reports No symptoms Musculoskeletal: Reports No symptoms Skin: Reports No symptoms Neurological: Reports No symptoms Endocrine: Reports No symptoms Hematologic/Lymphatic: Reports No symptoms All Other Systems: Reviewed and Negative [facility] Medical History Congestive heart failure Encounter for medication refill Family History FATHER Cardiac disease Grandfather/Grandmother Diabetes Cardiac disease Mother No problems noted. Social History Smoking and tobacco status: Former smoker Quit date: 09/13/16 Passive smoking exposure: No Second hand smoke exposure: No Alcohol intake: current Alcohol intake frequency: holidays/special occasions only Counseling given: No Substance use type: marijuana Counseling given: No Emily/yarsani: NONE Special emily needs: No Agree to transfusion: Yes Adopted: No Caregiver/support person: No Foster care: No Household members: other Housing: other Marital status: D Lives independently: No Number of children: 4 Number of grandchildren: 4 Highest education level completed: high school graduate service: No Current occupational status: employed Current occupation: Self-employed. Current occupational exposures/hazards: Yes Pets and animals: Yes (dog) History of recent travel: No Do you think of yourself as: straight/heterosexual Current gender identity: male Seatbelt use: always Surgical History History of musculoskeletal system surgery Status post tonsillectomy Status post tonsillectomy and adenoidectomy Physical Exam Physical Exam Appearance: Reports Well-appearing Ill-appearing: None Pain Distress: None Eyes: Reports BARRY, EOMI and Conjunctiva clear ENT: Reports Ears normal, Nose normal and Oropharynx normal Neck: Supple Respiratory: Reports Airway patent, Breath sounds clear and Breath sounds equal Cardiovascular: Reports RRR, Pulses normal, No rub and No murmur GI/: Reports Soft, Nontender, No masses and Bowel sounds normal Musculoskeletal: Reports Normal strength, ROM intact, No edema and No calf tenderness Skin: Reports Warm, Dry and Normal color Neurological: Reports Sensation intact, Motor intact, Reflexes intact, Cranial nerves intact, Alert and Oriented Psychiatric: Reports Affect appropriate and Mood appropriate Interpretation Radiology Interpretation Radiology Interpretation By: Radiologist Radiology Results: Negative Exam Interpreted: Portable CXR EKG Interpretation Time of EKG #1: 21:25 Rate: Tachy Rhythm: Other Ectopy: None [place]: NL ST Segment: Normal Interpretation: afib with rvr Critical Care Note Critical Care Note Total Critical Care Time (mins): 0 Course Course Hematology/Chemistry: 09/10/22 19:45 09/10/22 19:45 Orders, Labs, Meds: Lab Review 09/10/22 09/10/22 09/10/22 19:45 19:45 19:45 WBC 5.70 RBC 4.53 L Hgb 12.9 L Hct 38.8 L MCV 85.7 MCH 28.5 MCHC 33.2 RDW Coeff of Mora 13.2 Plt Count 433 Immature Gran % (Auto) 0.2 Neut % (Auto) 59.4 Lymph % (Auto) 15.6 [place] % (Auto) 22.3 H Eos % (Auto) 0.9 Baso % (Auto) 1.6 Neut # (Auto) 3.4 Lymph # (Auto) 0.9 [place] # (Auto) 1.3 Eos # (Auto) 0.1 Baso # (Auto) 0.1 Immature Gran # (Auto) 0.0 Puncture Site Base Excess O2 Saturation ABG pH ABG pCO2 ABG pO2 ABG HCO3 ABG Total CO2 Tone Test Hemoglobin Oxyhemoglobin Carboxyhemoglobin Total Hemoglobin FiO2 % Sodium 137.1 Potassium 3.57 Chloride 104.8 Carbon Dioxide 22.6 Anion Gap 13.27 BUN 23.3 H Creatinine 1.00 Estimated GFR (MDRD) 75.00 BUN/Creatinine Ratio 23.30 Glucose 119.3 H Calcium 9.22 Total Bilirubin 0.58 AST 40.5 ALT 35.6 Alkaline Phosphatase 177.3 H Troponin I 0.059 NT-Pro-B Natriuret Pep 6490.000 H Total Protein 7.50 Albumin 4.19 Globulin 3.31 Albumin/Globulin Ratio 1.26 D-Dimer 584.58 H 09/10/22 19:53 WBC RBC Hgb Hct MCV MCH MCHC RDW Coeff of Mora Plt Count Immature Gran % (Auto) Neut % (Auto) Lymph % (Auto) [place] % (Auto) Eos % (Auto) Baso % (Auto) Neut # (Auto) Lymph # (Auto) [place] # (Auto) Eos # (Auto) Baso # (Auto) Immature Gran # (Auto) Puncture Site Rb Base Excess 0.8 O2 Saturation 95.7 ABG pH 7.52 H* ABG pCO2 29.0 L ABG pO2 71.0 L ABG HCO3 23.7 ABG Total CO2 24.6 H Tone Test + Hemoglobin 0.6 Oxyhemoglobin 92.7 L Carboxyhemoglobin 2.4 H Total Hemoglobin 13.5 FiO2 % 21.0 Sodium Potassium Chloride Carbon Dioxide Anion Gap BUN Creatinine Estimated GFR (MDRD) BUN/Creatinine Ratio Glucose Calcium Total Bilirubin AST ALT Alkaline Phosphatase Troponin I NT-Pro-B Natriuret Pep Total Protein Albumin Globulin Albumin/Globulin Ratio D-Dimer Orders Category Date Time Status ABG DRAW REQUEST Stat CARDIO 09/10/22 19:35 Completed EKG-(ED ONLY) Stat CARDIO 09/10/22 19:05 Completed EKG-(ED ONLY) Stat CARDIO 09/10/22 19:35 Completed ED THERMAL SURFACING MACHINE OPERATOR APPLIED .ONCE EMERGENCY 09/10/22 19:35 Active ABG COOX Stat LAB 09/10/22 19:53 Completed CBC W/ AUTO DIFF Stat LAB 09/10/22 19:45 Completed COMPREHENSIVE METABOLIC PANEL Stat LAB 09/10/22 19:45 Completed D-DIMER Stat LAB 09/10/22 19:45 Completed NT-PROBNP Stat LAB 09/10/22 19:45 Completed TROPONIN I Stat LAB 09/10/22 19:45 Completed Ondansetron [Zofran Odt] MEDS 09/10/22 20:00 Discontinued 4 mg PO ONCE ONE CXR [CHEST, 1V AP ONLY] Stat RADS 09/10/22 19:35 Completed Medications Discontinued Medications Generic Name Dose Route Start Last Admin Trade Name Freq PRN Reason Stop Dose Admin Ondansetron HCl 4 mg 09/10/22 20:00 09/10/22 20:05 Ondansetron Hcl 4 Mg Tab.Rapdis PO 09/10/22 20:01 4 mg ONCE ONE Administration Vital Signs: Temp Pulse Resp BP Pulse Ox 09/10/22 17:42 97.7 F 57 L 18 118/72 98 Discharge Plan Discharge Patient Disposition: PLACED OBSERVATION Discharge Problem: Atrial fibrillation with rapid ventricular response Prescriptions: No Action furosemide [Lasix] 40 mg tablet 40 mg PO DAILY Qty: 90 1RF losartan 25 mg tablet 25 mg PO QDAY Qty: 90 1RF multivitamin [Tab-A-Didi] 1 TAB tablet 1 tab PO DAILY 0RF Fluzone Quad (PF) 60 mcg (15 mcg x 4)/0.5 mL syringe 0.5 ml IM ONCE Qty: 1 0RF cimetidine 400 mg tablet 400 mg PO ONCE PRN (Reason: Acid Reflux) aspirin [Adult Aspirin Regimen] 81 mg tablet,delayed release (DR/EC) 81 mg PO QDAY Qty: 30 6RF loratadine 10 mg tablet 10 mg PO DAILY Qty: 90 1RF metoprolol succinate 50 mg tablet extended release 24 hr 50 mg PO DAILY Qty: 90 1RF omeprazole 20 mg capsule,delayed release(DR/EC) 20 mg PO DAILY Qty: 90 1RF rosuvastatin 10 mg tablet 10 mg PO ONCE Qty: 90 1RF Did you review [place] VOLUNTEER SERVICES SPECIALIST?: Not Applicable ED Provider: TINO HERNANDEZ Condition: Fair Physician Progress Note: []
--- NOTE | 2022-09-10 21:02 | DI ---
Exam: Chest one-view History: Dyspnea FINDINGS: Normal cardiomediastinal contours. Normal pulmonary vasculature. The lungs are hyperexpa nded. No infiltrative opacities. No acute chest wall abnormality. Impression: No acute cardiopulmonary disease Chronic obstructive pulmonary disease
[2022-09-10] MEDS ORDERED: TAGAMET PO PRN (21:31)
[2022-09-10 23:10] LABS: SARS COV-2 RNA RAPID NAAT NEGATIVE (NEGATIVE)
[2022-09-11 00:10] VITALS: BMI 20.4
[2022-09-11] MEDS: COZAAR PO SCH ×2 (00:23→08:19)
[2022-09-11] MEDS: ELIQUIS PO SCH ×2 (00:23→08:20)
[2022-09-11 03:38] LABS: BASOPHILS # (AUTO) 0.1 K/uL (0-0.2); BASOPHILS % (AUTO) 1.4 % (0.0-3.0); EOSINOPHILS % (AUTO) 0.6 % (0.0-7.0); HEMATOCRIT 38.7 % (42.0-52.0); HEMOGLOBIN 12.5 g/dl (14.0-18.0); IMMATURE GRANULOCYTE % (AUTO) 0.4 % (0.0-5.0); LYMPHOCYTES # (AUTO) 0.6 K/uL (0.60-3.4); LYMPHOCYTES % (AUTO) 12.3 (10.0-50.0); MEAN CORPUSCULAR HEMOGLOBIN 28.3 pg (27.0-31.0); MEAN CORPUSCULAR HGB CONC 32.3 (31.8-35.4); MEAN CORPUSCULAR VOLUME 87.6 fl (80.0-94.0); MONOCYTES # (AUTO) 0.6 K/uL (0.4-2.0); MONOCYTES % (AUTO) 12.1 (0-10); NEUTROPHILS # (AUTO) 3.6 K/ul (2.0-6.9); NEUTROPHILS % (AUTO) 73.2 % (42.2-75.2); PLATELET COUNT 399 10^3/uL (140-440); RDW COEFFICIENT OF VARIATION 13.2 % (11.6-14.8); RED BLOOD COUNT 4.42 10^6/ul (4.70-6.10); WHITE BLOOD COUNT 4.97 K/ul (4.2-10.2)
[2022-09-11 03:51] LABS: ALANINE AMINOTRANSFERASE 31.9 U/L (0-50); ALBUMIN 4.04 g/dL (3.5-5.0); ALKALINE PHOSPHATASE 166.7 U/L (56-119); ASPARTATE AMINO TRANSFERASE 38.7 U/L (17-59); BILIRUBIN,TOTAL 0.65 mg/dL (0.2-1.3); BLOOD UREA NITROGEN 24.9 mg/dL (9-20); CALCIUM 9.21 mg/dL (8.4-10.2); CARBON DIOXIDE 28.2 mmol/L (22-30.0); CHLORIDE 100.7 mmol/L (98-107); CHOLESTEROL 189.4 mg/dL (0-200); CREATINE KINASE 39.7 U/L (55-170); CREATININE 1.08 mg/dL (0.60-1.10); GLUCOSE 91.9 mg/dL (74-106); HDL CHOLESTEROL 28.4 mg/dL (35-60); POTASSIUM 3.69 mmol/L (3.5-5.1); SODIUM 136.6 mmol/L (134.5-145); TOTAL PROTEIN 7.23 g/dL (6.3-8.2); TRIGLYCERIDES 119.7 mg/dL (0-150)
[2022-09-11 04:02] LABS: TROPONIN I 0.064 ng/ml (0.0000-0.120)
[2022-09-11 04:21] LABS: THYROID STIMULATING HORMONE 1.79 uIU/L (0.465-4.68)
[2022-09-11 05:05] VITALS: TEMP 97.5
--- NOTE | 2022-09-11 06:37 | PCM ---
Chief Complaint Chief Complaint: i was so short of breath History of Present Illness History of Present Illness: This is a 66 yr male with noted hx of cardiomyopathy who has been off his meds byf his own admission for about a month. He presented to the ed with sob and found to have afib with rvr aNd then converted back to sr. His sob resolved.He denies any chest pain. Review of Systems Constitutional: Reports No symptoms and Fatigue Eyes: Reports No symptoms Ears: Reports No symptoms Nose: Reports No symptoms Throat: Reports No symptoms Mouth: Reports No symptoms Respiratory: Reports Shortness of air Cardiovascular: Reports No symptoms Gastrointestinal: Reports No symptoms Genitourinary: Reports No symptoms Neurological: Reports No symptoms Musculoskeletal: Reports No symptoms Skin: Reports No symptoms Immunology: Reports No symptoms Hematology: Reports No symptoms Endocrine: Reports No symptoms Psychiatric: Reports No symptoms Habits: Reports Other (he will not give me an appropriate hx) Allergies Allergies Allergy/AdvReac Type Severity Reaction Status Date / Time No Known Allergies Allergy Verified 09/11/22 06:33 [facility] Medical History A-fib Congestive heart failure Encounter for medication refill Hepatitis C Hypertension Surgical History History of musculoskeletal system surgery Status post tonsillectomy Status post tonsillectomy and adenoidectomy Family History FATHER Cardiac disease Grandfather/Grandmother Diabetes Cardiac disease Mother No problems noted. Social History Smoking and tobacco status: Former smoker Quit date: 09/13/16 Passive smoking exposure: No Second hand smoke exposure: No Alcohol intake: current Alcohol intake frequency: holidays/special occasions only Counseling given: No Substance use type: marijuana Counseling given: No Emily/adventism: NONE Special emily needs: No Agree to transfusion: Yes Adopted: No Caregiver/support person: No Foster care: No Household members: other Housing: other Marital status: D Lives independently: No Number of children: 4 Number of grandchildren: 4 Highest education level completed: high school graduate service: No Current occupational status: employed Current occupation: Self-employed. Current occupational exposures/hazards: Yes Pets and animals: Yes (dog) History of recent travel: No Do you think of yourself as: straight/heterosexual Current gender identity: male Seatbelt use: always Medications Medications: Medications Generic Name Dose Route Start Last Admin Trade Name Freq PRN Reason Stop Dose Admin Apixaban 5 mg 09/10/22 23:43 09/11/22 00:23 Apixaban 5 Mg Tab PO 5 mg BID BRANDYN Administration Cimetidine 400 mg 09/10/22 21:31 Cimetidine 400 Mg Tablet PO ONCE PRN Abdominal Pain Furosemide 40 mg 09/11/22 09:00 Furosemide 40 Mg Tablet PO DAILY BRANDYN Losartan Potassium 25 mg 09/10/22 22:00 09/11/22 00:23 Losartan Potassium 25 Mg Tablet PO 25 mg DAILY BRANDYN Administration Metoprolol Succinate 50 mg 09/11/22 09:00 Metoprolol Succinate 50 Mg Tab.Er.24h PO DAILY BRANDYN Omeprazole 20 mg 09/11/22 09:00 Omeprazole 20 Mg Capsule.Dr PO DAILY COUNT INCLUDES THE [facility] Body Composition Height: 5 ft 10 in Weight: 142 lb 9 oz Body Mass Index (BMI): 20.4 Vital Signs Temperature: 97.5 F Pulse Rate: 93 Respiratory Rate: 18 Blood Pressure: 106/67 O2 Sat by Pulse Oximetry: 96 Physical Examination Appearance: Reports Thin Ill-appearing: None Pain Distress: None Eyes: Reports BARRY, EOMI and Conjunctiva clear ENT: Reports Ears normal, Nose normal and Oropharynx normal Neck: Supple Respiratory: Reports Airway patent, Breath sounds clear and Breath sounds equal Cardiovascular: Reports RRR, Pulses normal and No rub GI/: Reports Soft, Nontender, No masses and Bowel sounds normal Musculoskeletal: Reports Normal strength, ROM intact and No edema Skin: Reports Warm, Dry and Normal color Neurological: Reports Sensation intact, Motor intact, Reflexes intact, Cranial nerves intact, Alert and Oriented Psychiatric: Reports Affect appropriate and Mood appropriate Lab/Tests/Diagnostic Imaging Lab/Tests/Diagnostic Imaging: Lab Review 09/10/22 09/10/22 09/10/22 19:36 19:45 19:45 WBC 5.70 RBC 4.53 L Hgb 12.9 L Hct 38.8 L MCV 85.7 MCH 28.5 MCHC 33.2 RDW Coeff of Mora 13.2 Plt Count 433 Immature Gran % (Auto) 0.2 Neut % (Auto) 59.4 Lymph % (Auto) 15.6 [place] % (Auto) 22.3 H Eos % (Auto) 0.9 Baso % (Auto) 1.6 Neut # (Auto) 3.4 Lymph # (Auto) 0.9 [place] # (Auto) 1.3 Eos # (Auto) 0.1 Baso # (Auto) 0.1 Immature Gran # (Auto) 0.0 Puncture Site Base Excess O2 Saturation ABG pH ABG pCO2 ABG pO2 ABG HCO3 ABG Total CO2 Tone Test Hemoglobin Oxyhemoglobin Carboxyhemoglobin Total Hemoglobin FiO2 % Sodium 137.1 Potassium 3.57 Chloride 104.8 Carbon Dioxide 22.6 Anion Gap 13.27 BUN 23.3 H Creatinine 1.00 Estimated GFR (MDRD) 75.00 BUN/Creatinine Ratio 23.30 Glucose 119.3 H Calcium 9.22 Total Bilirubin 0.58 AST 40.5 ALT 35.6 Alkaline Phosphatase 177.3 H Total Creatine Kinase 47.3 L Troponin I 0.059 NT-Pro-B Natriuret Pep 6490.000 H Total Protein 7.50 Albumin 4.19 Globulin 3.31 Albumin/Globulin Ratio 1.26 Triglycerides Cholesterol LDL Cholesterol, Calc VLDL Cholesterol HDL Cholesterol Cholesterol/HDL Ratio TSH D-Dimer SARS CoV-2 RNA Rapid KARLO 09/10/22 09/10/22 09/10/22 19:45 19:53 22:05 WBC RBC Hgb Hct MCV MCH MCHC RDW Coeff of Mora Plt Count Immature Gran % (Auto) Neut % (Auto) Lymph % (Auto) [place] % (Auto) Eos % (Auto) Baso % (Auto) Neut # (Auto) Lymph # (Auto) [place] # (Auto) Eos # (Auto) Baso # (Auto) Immature Gran # (Auto) Puncture Site Rb Base Excess 0.8 O2 Saturation 95.7 ABG pH 7.52 H* ABG pCO2 29.0 L ABG pO2 71.0 L ABG HCO3 23.7 ABG Total CO2 24.6 H Tone Test + Hemoglobin 0.6 Oxyhemoglobin 92.7 L Carboxyhemoglobin 2.4 H Total Hemoglobin 13.5 FiO2 % 21.0 Sodium Potassium Chloride Carbon Dioxide Anion Gap BUN Creatinine Estimated GFR (MDRD) BUN/Creatinine Ratio Glucose Calcium Total Bilirubin AST ALT Alkaline Phosphatase Total Creatine Kinase Troponin I NT-Pro-B Natriuret Pep Total Protein Albumin Globulin Albumin/Globulin Ratio Triglycerides Cholesterol LDL Cholesterol, Calc VLDL Cholesterol HDL Cholesterol Cholesterol/HDL Ratio TSH D-Dimer 584.58 H SARS CoV-2 RNA Rapid KARLO Negative 09/11/22 09/11/22 03:30 03:30 WBC 4.97 RBC 4.42 L Hgb 12.5 L Hct 38.7 L MCV 87.6 MCH 28.3 MCHC 32.3 RDW Coeff of Mora 13.2 Plt Count 399 Immature Gran % (Auto) 0.4 Neut % (Auto) 73.2 Lymph % (Auto) 12.3 [place] % (Auto) 12.1 H Eos % (Auto) 0.6 Baso % (Auto) 1.4 Neut # (Auto) 3.6 Lymph # (Auto) 0.6 [place] # (Auto) 0.6 Eos # (Auto) 0.0 Baso # (Auto) 0.1 Immature Gran # (Auto) 0.0 Puncture Site Base Excess O2 Saturation ABG pH ABG pCO2 ABG pO2 ABG HCO3 ABG Total CO2 Tone Test Hemoglobin Oxyhemoglobin Carboxyhemoglobin Total Hemoglobin FiO2 % Sodium 136.6 Potassium 3.69 Chloride 100.7 Carbon Dioxide 28.2 Anion Gap 11.39 BUN 24.9 H Creatinine 1.08 Estimated GFR (MDRD) 69.00 BUN/Creatinine Ratio 23.05 Glucose 91.9 Calcium 9.21 Total Bilirubin 0.65 AST 38.7 ALT 31.9 Alkaline Phosphatase 166.7 H Total Creatine Kinase 39.7 L Troponin I 0.064 NT-Pro-B Natriuret Pep Total Protein 7.23 Albumin 4.04 Globulin 3.19 Albumin/Globulin Ratio 1.26 Triglycerides 119.7 Cholesterol 189.4 LDL Cholesterol, Calc 137 VLDL Cholesterol 24 HDL Cholesterol 28.4 L Cholesterol/HDL Ratio 6.7 H TSH 1.790 D-Dimer SARS CoV-2 RNA Rapid KARLO Orders Category Date Time Status OBSERVATION [PLACE PATIENT OBSERVATION] .TO MEDSUR ADMISSION 09/10/22 21:27 Active (MONITORED BED) ABG DRAW REQUEST Stat CARDIO 09/10/22 19:35 Completed EKG-(ED ONLY) Stat CARDIO 09/10/22 19:05 Completed EKG-(ED ONLY) Stat CARDIO 09/10/22 19:35 Completed EKG-(IP & OP ONLY) DAILY CARDIO 09/11/22 06:00 Completed EKG-(IP & OP ONLY) DAILY CARDIO 09/12/22 06:00 Ordered ACTIVITY .Up ad Angela CARE 09/10/22 21:28 Active INTAKE & OUTPUT Q8HR CARE 09/10/22 21:28 Active IP: INSERT SALINE LOCK ONCE CARE 09/10/22 21:28 Active NOTIFY PHYSICIAN OF CONSULT ONCE CARE 09/10/22 21:30 Active NPO REMINDER: LAB TEST ONCE CARE 09/10/22 23:48 Completed TELEMETRY MONITORING TELE CARE 09/10/22 21:27 Active VITAL SIGNS Q8HR CARE 09/10/22 21:28 Completed CONSULT DOCTOR [PHYSICIAN CONSULTATION] [CONS] Routine CONSULTS 09/10/22 21:29 Ordered CARDIAC DIET DIETARY 09/10/22 Breakfast Ordered ED CANDY COUNTER CLERK APPLIED .ONCE EMERGENCY 09/10/22 19:35 Active ABG COOX Stat LAB 09/10/22 19:53 Completed CBC W/ AUTO DIFF DAILY@0600 LAB 09/11/22 03:30 Completed CBC W/ AUTO DIFF DAILY@0600 LAB 09/12/22 06:00 Ordered CBC W/ AUTO DIFF Stat LAB 09/10/22 19:45 Completed COMPREHENSIVE METABOLIC PANEL DAILY@0600 LAB 09/12/22 06:00 Ordered COMPREHENSIVE METABOLIC PANEL Routine LAB 09/11/22 03:30 Completed COMPREHENSIVE METABOLIC PANEL Stat LAB 09/10/22 19:45 Completed COVID [SARS COV-2 RNA RAPID KARLO] Stat LAB 09/10/22 22:05 Completed CPK [CREATINE KINASE] Routine LAB 09/10/22 19:36 Completed CREATINE KINASE Routine LAB 09/11/22 03:30 Completed CREATINE KINASE Routine LAB 09/11/22 11:30 Ordered D-DIMER Stat LAB 09/10/22 19:45 Completed LIPID PANEL Routine LAB 09/11/22 03:30 Completed NT-PROBNP Stat LAB 09/10/22 19:45 Completed T3 LEVEL (FREE) [FREE TRIIODOTHYRONINE (T3)] Routine LAB 09/11/22 03:30 Received T4 (THYROXINE) Routine LAB 09/11/22 03:30 Received THYROID STIMULATING HORMONE Routine LAB 09/11/22 03:30 Completed TROPONIN I Q8H LAB 09/11/22 03:30 Completed TROPONIN I Q8H LAB 09/11/22 11:30 Ordered TROPONIN I Stat LAB 09/10/22 19:45 Completed Apixaban [Eliquis] MEDS 09/10/22 23:43 Active 5 mg PO BID Apixaban [Eliquis] MEDS 09/11/22 09:00 Discontinued 5 mg PO BID Cimetidine [Tagamet] MEDS 09/10/22 21:31 Active 400 mg PO ONCE PRN Furosemide [Lasix Tab] MEDS 09/11/22 09:00 Active 40 mg PO DAILY Losartan Potassium [Cozaar] MEDS 09/10/22 22:00 Active 25 mg PO DAILY Metoprolol Succinate [Toprol Xl] MEDS 09/11/22 09:00 Active 50 mg PO DAILY Omeprazole [Prilosec] MEDS 09/11/22 09:00 Active 20 mg PO DAILY Ondansetron [Zofran Odt] MEDS 09/10/22 20:00 Discontinued 4 mg PO ONCE ONE RESUSCITATION STATUS Routine OTHERS 09/10/22 21:28 Ordered CXR [CHEST, 1V AP ONLY] Stat RADS 09/10/22 19:35 Completed Medications Generic Name Dose Route Start Last Admin Trade Name Freq PRN Reason Stop Dose Admin Apixaban 5 mg 09/10/22 23:43 09/11/22 00:23 Apixaban 5 Mg Tab PO 5 mg BID BRANDYN Administration Cimetidine 400 mg 09/10/22 21:31 Cimetidine 400 Mg Tablet PO ONCE PRN Abdominal Pain Furosemide 40 mg 09/11/22 09:00 Furosemide 40 Mg Tablet PO DAILY BRANDYN Losartan Potassium 25 mg 09/10/22 22:00 09/11/22 00:23 Losartan Potassium 25 Mg Tablet PO 25 mg DAILY BRANDYN Administration Metoprolol Succinate 50 mg 09/11/22 09:00 Metoprolol Succinate 50 Mg Tab.Er.24h PO DAILY BRANDYN Omeprazole 20 mg 09/11/22 09:00 Omeprazole 20 Mg Capsule.Dr PO DAILY BRANDYN Discontinued Medications Generic Name Dose Route Start Last Admin Trade Name Freq PRN Reason Stop Dose Admin Apixaban 5 mg 09/11/22 09:00 Apixaban 5 Mg Tab PO BID BRANDYN Ondansetron HCl 4 mg 09/10/22 20:00 09/10/22 20:05 Ondansetron Hcl 4 Mg Tab.Rapdis PO 09/10/22 20:01 4 mg ONCE ONE Administration Assessment (1) Atrial fibrillation with rapid ventricular response: Status: Acute Code(s): I48.91 - Unspecified atrial fibrillation SNOMED Code(s): 982518744735004 Plan Plan: will restart home meds---start eliquis---recheck thyroid functions---admit to hospitalist, consult dr olson ? echo
[2022-09-11] MEDS ORDERED: TAGAMET PO PRN (07:30)
[2022-09-11] MEDS ORDERED: TOPROL XL PO SCH (09:00)
[2022-09-11] MEDS ORDERED: ELIQUIS PO SCH (09:00)
[2022-09-11] MEDS ORDERED: LASIX TAB PO SCH (09:00)
[2022-09-11] MEDS ORDERED: PRILOSEC PO SCH (09:00)
--- NOTE | 2022-09-11 09:19 | PCM.PROG ---
Date Seen by Provider: 09/11/22 Time Seen by Provider: 08:45 Subjective: Patient with many complaints. Denies chest pain or dyspnea. Objective: Vitals: T=97.5 F, P=93, R=18, WY=215/67, SPO2=96 Alert and in NAD. HEENT: [] Neck: [] No JVD Lungs: [] Clear and BS equal. CVS: [] RRR. Occasional PACS on monitor, otherwise NSR Abdomen: []Soft, nontender. Extremities: [] Neurological: [] Skin: [] Lab/Tests/Diagnostic Imaging: [] (1) Atrial fibrillation with rapid ventricular response: Status: Acute Code(s): I48.91 - Unspecified atrial fibrillation SNOMED Code(s): 355219071390444 Assessment: Patient educated on the importance of taking his medications as prescribed. He was educated on the possible outcomes if he doesn't; CVA, , etc. Dr Kent to see today. Probably home later today. He expressed wish to have a male health care provider;attempts to arrange this prior to discharge will be made. Plan: Discharge later today after Dr Kent sees him if ok with Dr Kent.
--- NOTE | 2022-09-11 10:02 | PCM.DC ---
Final Diagnosis: atrial fibrillation with RVR poor medical compliance Physical Exam Appearance: Well-appearing, No pain distress and Thin Ill-appearing: None Pain Distress: None Eyes: Not Examined ENT: Nose normal and Oropharynx normal Neck: Supple (no JVD) Respiratory: Airway patent, Breath sounds clear and Breath sounds equal Cardiovascular: RRR, No rub and No murmur GI/: Soft, Nontender, No masses and Bowel sounds normal Musculoskeletal: Normal strength and ROM intact Skin: Warm, Dry and Normal color Neurological: Sensation intact, Motor intact, Alert and Oriented Psychiatric: Affect appropriate and Mood appropriate (1) Atrial fibrillation with rapid ventricular response: Status: Acute Code(s): I48.91 - Unspecified atrial fibrillation SNOMED Code(s): 100156156406669 Reason for Hospitalization: Patient admitted with atrial fibrillation with RVR Prognosis/Condition at Discharge: Condition at discharge was stable. Medications at Discharge: Patient discharged on the same medications that he was on at the time of admission. Education Provided to Patient and Family: atrial fibrillation Follow-ups: Follow up with your primary care provider within the next week. Discharge Disposition: Home Hospital Course: Patient admitted with atrial fibrillation with RVR. He spontaneously converted to normal sinus rhythm. Patient remained in NSR and was discharged to home the day following admission. Plan: Follow up with your primary care provider within one week.
[2022-09-11 10:21] VITALS: BP 96/64
[2022-09-11 12:36] LABS: CREATINE KINASE 40.8 U/L (55-170)
[2022-09-11 12:48] LABS: TROPONIN I 0.085 ng/ml (0.0000-0.120)
[2022-09-12 03:14] LABS: FREE TRIIODOTHYRONINE (T3) 2.4 pg/mL (2.0-4.4); T4 (THYROXINE) 7.3 ug/dL (4.5-12.0)
--- NOTE | 2022-09-15 15:05 | CONS ---
DATE OF CONSULTATION: 09/11/22 REASON FOR CONSULTATION: 66 year old white male hospitalized on 09/10/22. I was called on the morning of 09/11/22 at 6:00 a.m. and the nurse, Destiny said I had a cardiac consultation done by Dr. Nacho Pringle. She had already ordered routine things that I usually ordered for any consult - lipid profile, thyroid profile, in good mya. I have known this patient for a few years and he is noncompliant in all aspects of medical care. He is intelligent. I came to the floor and told, nurse Frank, the floor cashier and Air Route Controller, Tracy, that I'm not gonna see the patient on consultation because of his noncompliance of all aspects of medical care. I also called Dr. Carias,hospitalist, that morning. I indicated to all of them that I will do cardiac work up if ordered by attending/hospitalist MD. CHINCHILLA
== END 2022-09-11 12:46 | disposition home or self-care (01) ==
LOC: ED 17:41 → INTOOBSV 23:16 → MEDSURG A 23:16
PROVIDERS: ADMIT Family Medicine; ATTEND Surgery
DX: I42.9 Cardiomyopathy, unspecified; Z91.199 Patient's noncompliance with other medical treatment and regimen due to unspecified reason; I10 Essential (primary) hypertension; I50.9 Heart failure, unspecified; Z20.822 Contact with and (suspected) exposure to COVID-19; F12.90 Cannabis use, unspecified, uncomplicated; I48.0 Paroxysmal atrial fibrillation; Z87.891 Personal history of nicotine dependence